=== PATIENT | male | born 1975 ===

== ENCOUNTER 2016-08-21 10:21 | Inpatient (IN) ==
[2016-08-21] MEDS ORDERED: MORPHINE 2 MG/1 ML SYRINGE IV PRN (11:26)
[2016-08-21] MEDS ORDERED: ACETAMINOPHEN 325 MG TABLET PO PRN (11:26)
[2016-08-21] MEDS ORDERED: ONDANSETRON 4 MG/2 ML VIAL IV PRN (11:26)
[2016-08-21] MEDS ORDERED: GLUCAGON 1 MG VIAL IM PRN (11:33)
[2016-08-21] MEDS ORDERED: DEXTROSE 50% 25 GM/50 ML VIAL IV PRN ×2 (11:33→14:16)
[2016-08-21 12:11] LABS: Basophils % 0.2 % (0.0-0.8); Eosinophils # 0.2 10*3/uL (0.0-0.87); Eosinophils % 3.4 % (0.00-10.9); Hematocrit 28.7 VOL% (42.0-52.0); Hemoglobin 10.2 GM/DL (14.0-18.0); Immature Granulocytes % 0.2 %; Immature Granulocytes Absolute 0.01 #; Lymphocytes # 0.9 10*3/uL (1.4-4.0); Lymphocytes % 14.4 % (21.2-54.2); Mean Corpuscular HGB Conc 35.5 GM/DL (32-36); Mean Corpuscular Hemoglobin 31 PG (27-34); Mean Corpuscular Volume 87.2 FL (87-102); Monocytes # 0.4 10*3/uL (0.11-0.8); Monocytes % 6.1 % (1.7-12.7); Neutrophils # 4.7 10*3/uL (1.4-7.4); Neutrophils % 75.7 % (38.7-73.9); Platelet Count 381 T/CUMM (130-400); Red Blood Count 3.29 MC/CUMM (3.8-5.5); Red Cell Distribution Width 11.9 % (9.3-17.3); White Blood Count 6.2 T/CUMM (4-12)
--- NOTE | 2016-08-21 12:20 | XRay Report ---
History: Shortness of breath Date: 08/21/2016 Study: Chest x-ray PA and lateral Comparison exam: September 01, 2014 The cardiac silhouette is not enlarged. There is no mediastinal mass. The pulmonary vasculature is not engorged. The exam was performed in shallow inspiration. There is mild subsegmental atelectasis in the right lung base. The lungs and pleural spaces are otherwise clear. Osseous structures are unremarkable. Impression: Shallow inspiration with mild platelike subsegmental atelectasis right lung base. No daria pneumonia or acute process otherwise PROCEDURE INTERPRETED AT [facility] DEPARTMENT OF RADIOLOGY Final Report Signed by: Dr. Marcelina Harvey
--- NOTE | 2016-08-21 12:28 | EKG Report ---
Stationary ECG Study [facility] Test Date: 08/21/2016 12:27:40 PM Pat Name: NEW FAULKNER Department: Room: 216 Gender: M Back Panel Padder: : 1975 Requested by: Brayden Humphries Order Number: [id number] Reading MD: MATHIEU SHAH Intervals [place] Rate: 77 P: 47 NE: 124 QRS: 75 QRSD: 102 T: -22 QT: 398 QTc: 430 Interpretive Statements SINUS RHYTHM Electronically Signed On 08-21-16 16:14:59 CDT by MAHTIEU SHAH [email or web address]
[2016-08-21 12:39] LABS: PT Patient Result 10.2 SECS; Partial Thromboplastin Time 33.8 SECS (0-40)
[2016-08-21 12:44] LABS: Albumin 2.4 G/DL (3.4-5.0); Calcium 8.2 MG/DL (8.5-10.1); Osmolality,Calculated 289.5 MOS/KG (273-304); Potassium 4.5 MMOL/L (3.5-5.1); Total Protein 6.3 G/DL (6.4-8.3)
[2016-08-21] MEDS ORDERED: SODIUM CHLORIDE 0.9% 1,000 ML IV ONE (12:49)
[2016-08-21 13:31] LABS: Apearance,Urine Slightly Hazy (Clear); Bacteria,Urine Occasional /HPF (Few); Bilirubin,Urine Negative (Negative); Blood, Urine Negative (Negative); Glucose,Urine (UA) 50 mg/dL (Negative); Ketones,Urine Negative (Negative); Mucus,Urine Occasional /LPF (Occasional); Nitrite,Urine Negative (Negative); Protein,Urine >=500 MG/DL; RBC,Urine 8 /HPF (0-4); Squamous Epithelial Cell,Urine Occasional /HPF (0-10); Urine Color Yellow (Yellow); Urine Specific Gravity 1.015 (1.001-1.035); Urine Urobilinogen < 2.0 EU/DL (0.2-1.0); WBC,Urine 2 /HPF (0-6)
[2016-08-21] MEDS: PIPERACILLIN/TAZOBACTAM 3,375 MG in SODIUM CHLORIDE 0.9% 100 ML IV SCH ×2 (15:16→21:41)
[2016-08-21] MEDS: SODIUM CHLORIDE 0.9% 1,000 ML IV SCH ×2 (15:16→23:34)
[2016-08-21] MEDS: INSULIN REGULAR 100 UNIT/ML SUBCUT SCH ×2 (17:02→20:42)
[2016-08-21] MEDS: SIMVASTATIN 40 MG TABLET PO SCH (20:31)
[2016-08-21] MEDS: ESCITALOPRAM 10 MG TABLET PO SCH (20:31)
[2016-08-22] MEDS: SODIUM CHLORIDE 0.9% 1,000 ML IV SCH ×4 (05:00→21:26)
[2016-08-22] MEDS: PIPERACILLIN/TAZOBACTAM 3,375 MG in SODIUM CHLORIDE 0.9% 100 ML IV SCH (05:24)
[2016-08-22 06:35] LABS: Calcium 7.7 MG/DL (8.5-10.1); Osmolality,Calculated 286.4 MOS/KG (273-304); Potassium 4.1 MMOL/L (3.5-5.1); Total Protein 5.7 G/DL (6.4-8.3)
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
--- NOTE | 2016-08-22 07:23 | General Surgery Progress Note ---
Assessment and Plan (1) Acute cholecystitis Status: Acute Assessment and plan: This patient improved overnight with IV fluid hydration and antibiotics but he still has significant abdominal tenderness. We held his Plavix on admission and I think that the benefit of cholecystectomy versus a tube drainage or antibiotics alone in this patient justifies the risk of surgery with him on Plavix. We will plan for laparoscopic cholecystectomy today with intraoperative cholangiogram. I discussed the risks, benefits, and alternatives of the operation with the patient and his family, and the expected outcomes have been reviewed. In particular, I discussed the risk of bleeding, infection, hernias of the abdominal wall, injury to the intestines or liver, pancreatitis, dropped or retained stones in the abdomen, bile leak, and bile duct injury. The patient's questions have been answered. Current Visit: Yes Subjective Patient reports: Present: no new complaints, still having pain, afebrile Exam - Constitutional Vitals: Period Temp Pulse Resp BP Sys/Cuadra Pulse Ox Last 24 Hr 97.2 F-99.1 F 70-83 18-20 161-182/86-98 98-100 General appearance: no acute distress, over weight - Head Head exam: Present: normal inspection, normocephalic - Eye Eye exam: Present: EOMI. Absent: scleral icterus Pupils: Present: RIGOBERTO - ENT ENT exam: Present: normal exam Mouth exam: Present: normal external inspection, normal voice - Neck Neck exam: Present: normal inspection, trachea midline - Respiratory Respiratory exam: Present: clear to auscultation bilaterally. Absent: accessory muscle use, chest wall tenderness - Cardiovascular Cardiovascular exam: Present: RRR. Absent: systolic murmur, tachycardia - GI/Abdominal GI/Abdominal exam: Present: Mejia's sign, tenderness, soft - Extremities Exam Extremities exam: Present: normal inspection, normal capillary refill - Back Exam Back exam: Present: normal inspection - Neurological Exam Neurological exam: Present: alert Speech: Present: normal - Skin Skin exam: Present: normal color, warm Results - Labs CBC & BMP: 08/21/16 11:46 08/22/16 04:30 Quality Measures - VTE Contraindication to Pharmacological VTE Prophylaxis: High Risk of Bleeding
[2016-08-22] MEDS ORDERED: PANTOPRAZOLE 40 MG TABLET PO SCH (09:00)
[2016-08-22] MEDS ORDERED: CLOPIDOGREL 75 MG TABLET PO SCH (09:00)
[2016-08-22] MEDS: PANTOPRAZOLE 40 MG TABLET PO SCH (10:36)
[2016-08-22] MEDS: METOPROLOL SUCCINATE XL 50 MG TABLET PO SCH (10:36)
[2016-08-22] MEDS ORDERED: TISSUE ADHESIVE 1 EACH APPLICATOR TOP ONE (11:01)
[2016-08-22] MEDS ORDERED: BUPIVACAINE MPF 0.25% /EPI 30 ML VIAL ONE (11:01)
[2016-08-22] MEDS: INSULIN REGULAR 100 UNIT/ML SUBCUT SCH ×3 (11:37→21:28)
[2016-08-22] MEDS: FERROUS SULFATE 325 MG TABLET PO SCH (11:39)
[2016-08-22] MEDS: ASPIRIN EC 81 MG TABLET PO SCH (11:39)
[2016-08-22] MEDS: GLIMEPIRIDE 2 MG TABLET PO SCH (11:39)
[2016-08-22 11:58] LABS: Bilirubin,Total 0.4 MG/DL (0.2-1.0)
[2016-08-22] MEDS ORDERED: LIDOCAINE 1% 5 ML VIAL ONE (12:05)
[2016-08-22] MEDS ORDERED: GLYCOPYRROLATE 0.4 MG/2 ML VIAL ONE (12:05)
[2016-08-22] MEDS ORDERED: ONDANSETRON 4 MG/2 ML VIAL ONE ×2 (12:05→14:27)
[2016-08-22] MEDS ORDERED: NEOSTIGMINE 10 MG/10 ML VIAL ONE (12:05)
[2016-08-22] MEDS ORDERED: ROCURONIUM 100 MG/10 ML VIAL IV ONE (12:05)
[2016-08-22] MEDS ORDERED: HYDROmorphone 2 MG/1 ML VIAL IV PRN (13:48)
--- NOTE | 2016-08-22 13:51 | Operative Note ---
Date of procedure: 08/22/16 Pre-op diagnosis: acute cholecystitis Post-op diagnosis: same Procedure: Preoperative diagnosis Acute cholecystitis Postoperative diagnosis Same Procedures performed Laparoscopic cholecystectomy 22 modifier Findings Acute cholecystitis was seen. The critical view of safety was obtained prior to placing clips on the cystic duct and cystic artery. There is significant scarring and inflammation in the cystic plate peritoneum with the tented up these common bile duct but this was able to be safely dissected away. However, the acute inflammation of the gallbladder made the case take more than twice usual length of time. 22 modifier was added for this reason. Complications None apparent Specimen Gallbladder Anesthesia GETA Blood loss 5 mL Indications Acute cholecystitis. The risks, benefits, and alternatives of the operation were discussed with the patient in detail, and the expected outcomes were reviewed. In particular, the risk of bowel injury, liver injury, bile duct leak and bile duct injury, as well as pancreatitis and retained or drop stones were discussed in detail. All the patient's questions were answered. She like to proceed with the operation. Description of procedure The patient was taken to the operating room and transferred to the operating table in the supine position. Pressure points were padded and SCDs were placed to bilateral lower extremities. General endotracheal anesthesia was administered. The abdomen was prepped chlorhexidine and draped sterilely. Preoperative antibiotics were administered, a timeout was performed. The abdomen was entered in a supraumbilical location of the Veress needle. The skin incision was made in the supraumbilical location with a 11 blade scalpel after local anesthetic was administered. Umbilical stalk was grasped with a penetrating towel clip. A Veress needle was used to enter the peritoneal cavity confirmed by double click technique. Aspiration was negative. Saline drop test confirmed intraperitoneal location. The abdomen was insufflated to 15 mmHg with an initial insufflation pressure of 2 mmHg. The Veress needle was removed and a 5 mm trocar was placed blindly. The towel clip was removed. Diagnostic laparoscopy was performed. There is no evidence of Veress needle or trocar injury. The patient was placed in reverse Trendelenburg and left side rolled down position. Under direct visualization, and after local anesthetic was administered, an 11 mm midepigastric trocar and 2 right subcostal 5 mm trochars were placed. There is significant acute inflammation of the gallbladder and it was very tense with fluid. This required aspiration to grasp the gallbladder. The cystic plate peritoneum was extremely inflamed and the common bile duct was tented up because of this inflammation making the case take more than twice usual length of time. However, the critical view of safety was initially obtained and the gallbladder was removed safely afterwards. There was a lot of inflammation present so CLAUDIA drain was left in the gallbladder fossa. The gallbladder was grasped at the fundus and infundibulum. The cystic plate peritoneum was dissected into the critical view of safety was obtained. The cystic duct and cystic artery were clipped twice initially and once laterally and divided laparoscopically with scissors between clips. Gallbladder was removed from the gallbladder fossa using hook electrocautery. The gallbladder was placed in a Endo Catch retrieval bag through the 11 mm trocar and removed through the trocar with significant fascial extension due to a large gallstone. The gallbladder fossa was suction irrigated until the effluent was clear. A #10 CLAUDIA drain was left in the gallbladder fossa and sewn in at the lateral right subcostal trocar site. The CO2 was released from the abdomen and the trochars were removed. The midepigastric fascial incision was closed with 2 layers of 0 Vicryl sutures with no residual fascial defect. The skin incisions were closed with 4-0 Monocryl subcuticular suture and sterile skin glue. The patient was awakened from anesthesia and transferred to recovery. Postoperative plan Advance diet as tolerated Pain control Anesthesia: NELLYA, local Surgeon / Physician: Francisco Leroy Estimated blood loss: minimal (100 mL) Specimens: other (gallbladder) Condition: stable Disposition: PACU Results - Labs CBC & BMP: 08/21/16 11:46 08/22/16 04:30 Discharge Plan - Discharge Medications No Action Aspirin [Ecotrin] 81 mg PO DAILY Metoprolol Succinate Xl [Toprol Xl] 50 mg PO DAILY Simvastatin [Zocor] 40 mg PO BEDTIME Lisinopril [Prinivil] 40 mg PO DAILY Chlorthalidone [Hygroton] 25 mg PO DAILY Dextrose 50% [D50] 25 gm IV PRN PRN #0 vial PRN Reason: Hypoglycemia with IV access Glucagon 1 mg IM PRN PRN #0 vial PRN Reason: Hypoglycemia w/o IV access Pantoprazole Tab [Protonix Tab] 20 mg PO DAILY Insulin Regular [HumuLIN R] See Protocol SUBCUT ACHS Multivitamin [One Daily] 1 each PO DAILY W/BREAKFAST Clopidogrel [Plavix] 75 mg PO DAILY metFORMIN [Glucophage] 250 mg PO BID W/MEALS Omeprazole 20 mg PO DAILY Ferrous Sulfate 325 mg PO DAILY Acetaminophen Tab [Tylenol Tab] 325 mg PO Q6H PRN PRN Reason: Fever, Headache, Mild Pain Ranitidine Tab [Zantac Tab] 150 mg PO DAILY Escitalopram [Lexapro] 10 mg PO BEDTIME Glimepiride [Amaryl] 1 mg PO DAILY traMADol TAB [Ultram] 50 mg PO Q6H PRN PRN Reason: pain - Follow Up or Referral - Forms/Instructions
[2016-08-22] MEDS ORDERED: SEVOFLURANE 1 UNIT/15 MINUTE INH ONE (14:06)
[2016-08-22] MEDS ORDERED: fentaNYL 100 MCG/2 ML VIAL ONE (14:07)
[2016-08-22] MEDS ORDERED: ePHEDrine 50 MG/ML AMP ONE (14:07)
[2016-08-22] MEDS ORDERED: MIDAZOLAM 2 MG/2 ML VIAL ONE (14:07)
[2016-08-22] MEDS ORDERED: ONDANSETRON 4 MG/2 ML VIAL IV PRN (14:11)
[2016-08-22] MEDS ORDERED: HYDROmorphone 2 MG/1 ML VIAL ONE (14:27)
[2016-08-22] MEDS: HYDROmorphone 2 MG/1 ML VIAL IV PRN ×3 (14:29→14:44)
[2016-08-22] MEDS ORDERED: SODIUM CHLORIDE 0.9% 1,000 ML IV SCH (14:30)
--- NOTE | 2016-08-22 14:32 | Anesthesia Post-Op ---
Anesthesia Post OP - Post Ansesthetic Evaluation Patient seen in post op: Yes Resp: within normal limits CV: within normal limits Mental: within normal limits Temp: within normal limits [id number]: within normal limits Nausea and Vomiting: within normal limits Pain: within normal limits
--- NOTE | 2016-08-22 19:01 | Event Note ---
General Surgery Progress Note Chief complaint This patient is a 40-year-old man admitted with acute cholecystitis and resultant acute kidney injury treated with hydration and laparoscopic cholecystectomy on 08/22/2016 Interval history The patient is doing well postoperatively. He has a low-grade tachycardia. There is minimal serosanguineous output and his CLAUDIA drain. He is tolerating his diet. His pain is well controlled. Physical exam The patient is afebrile. He has a low-grade tachycardia and his blood pressure is elevated CLAUDIA drain is serosanguineous and the patient has expected postoperative tenderness Labs None new Imaging None new Assessment and plan Diet as tolerated Repeat labs in the morning and continue IV fluid hydration tonight Discontinue antibiotics Monitor CLAUDIA drain output
[2016-08-22] MEDS: SIMVASTATIN 40 MG TABLET PO SCH (21:29)
[2016-08-22] MEDS: ESCITALOPRAM 10 MG TABLET PO SCH (21:30)
[2016-08-23] MEDS: SODIUM CHLORIDE 0.9% 1,000 ML IV SCH (03:34)
[2016-08-23 06:24] LABS: Basophils % 0.1 % (0.0-0.8); Eosinophils % 0.5 % (0.00-10.9); Hematocrit 26.4 VOL% (42.0-52.0); Hemoglobin 8.8 GM/DL (14.0-18.0); Immature Granulocytes % 0.5 %; Immature Granulocytes Absolute 0.04 #; Lymphocytes # 1.3 10*3/uL (1.4-4.0); Lymphocytes % 17.1 % (21.2-54.2); Mean Corpuscular HGB Conc 33.3 GM/DL (32-36); Mean Corpuscular Hemoglobin 30 PG (27-34); Mean Platelet Volume 7.6 FL (9.6-12.0); Monocytes # 0.7 10*3/uL (0.11-0.8); Monocytes % 8.4 % (1.7-12.7); Neutrophils # 5.7 10*3/uL (1.4-7.4); Neutrophils % 73.4 % (38.7-73.9); Platelet Count 372 T/CUMM (130-400); White Blood Count 7.7 T/CUMM (4-12)
[2016-08-23 07:10] LABS: Calcium 7.7 MG/DL (8.5-10.1); Magnesium 2.2 MG/DL (1.8-2.4); Osmolality,Calculated 292.8 MOS/KG (273-304); Potassium 4.4 MMOL/L (3.5-5.1)
[2016-08-23] MEDS: GLIMEPIRIDE 2 MG TABLET PO SCH (10:12)
[2016-08-23] MEDS: ASPIRIN EC 81 MG TABLET PO SCH (10:12)
[2016-08-23] MEDS: METOPROLOL SUCCINATE XL 50 MG TABLET PO SCH (10:12)
[2016-08-23] MEDS: FERROUS SULFATE 325 MG TABLET PO SCH (10:12)
[2016-08-23] MEDS: PANTOPRAZOLE 40 MG TABLET PO SCH (10:13)
[2016-08-23] MEDS: INSULIN REGULAR 100 UNIT/ML SUBCUT SCH ×4 (10:24→21:03)
[2016-08-23] MEDS: DEXT 5% NACL 0.45% KCL 40 MEQ 40 MEQ/1,000 ML BAG IV SCH ×2 (10:31→21:02)
--- NOTE | 2016-08-23 11:46 | Event Note ---
General Surgery Progress Note Chief complaint This patient is a 40-year-old man admitted with acute cholecystitis and resultant acute kidney injury treated with hydration and laparoscopic cholecystectomy on 08/22/2016 Interval history Patient did well overnight. His hemoglobin did drop from 10-8.8 this morning. His CLAUDIA drain has serosanguineous output and there is no clinical evidence of ongoing bleeding. He is slightly tachycardic with heart rate in the high 90s but his blood pressure is also elevated. He is not really asking for pain medicine. His creatinine is stable at 2.1 but his BUN is downtrending. He says he feels much better and is tolerating regular diet. Physical exam The patient is afebrile. He has a low-grade tachycardia and his blood pressure is elevated CLAUDIA drain is serosanguineous and the patient has expected postoperative tenderness Labs Reviewed, as above Imaging None new Assessment and plan Continue diet as tolerated Continue IV fluid hydration for acute renal injury due to dehydration Repeat labs tomorrow Plan for discharge home tomorrow if labs are improving Hold off on DVT chemoprophylaxis given decrease in hemoglobin and wait for this to stabilize Continue incentive spirometry and SCDs
[2016-08-23] MEDS: PIPERACILLIN/TAZOBACTAM 3,375 MG in SODIUM CHLORIDE 0.9% 100 ML IV SCH (19:54)
[2016-08-23] MEDS: ESCITALOPRAM 10 MG TABLET PO SCH (21:02)
[2016-08-23] MEDS: SIMVASTATIN 40 MG TABLET PO SCH (21:02)
[2016-08-24] MEDS: DEXT 5% NACL 0.45% KCL 40 MEQ 40 MEQ/1,000 ML BAG IV SCH ×3 (03:57→21:48)
[2016-08-24 05:16] LABS: Basophils % 0.1 % (0.0-0.8); Eosinophils # 0.4 10*3/uL (0.0-0.87); Eosinophils % 4.9 % (0.00-10.9); Hematocrit 23.7 VOL% (42.0-52.0); Hemoglobin 8.2 GM/DL (14.0-18.0); Immature Granulocytes % 0.5 %; Immature Granulocytes Absolute 0.04 #; Lymphocytes # 1.5 10*3/uL (1.4-4.0); Lymphocytes % 20.2 % (21.2-54.2); Mean Corpuscular HGB Conc 34.6 GM/DL (32-36); Mean Corpuscular Hemoglobin 31 PG (27-34); Mean Corpuscular Volume 88.8 FL (87-102); Mean Platelet Volume 7.9 FL (9.6-12.0); Monocytes # 0.6 10*3/uL (0.11-0.8); Monocytes % 8.3 % (1.7-12.7); Neutrophils # 4.9 10*3/uL (1.4-7.4); Platelet Count 365 T/CUMM (130-400); Red Blood Count 2.67 MC/CUMM (3.8-5.5); Red Cell Distribution Width 11.9 % (9.3-17.3); White Blood Count 7.4 T/CUMM (4-12)
[2016-08-24 05:44] LABS: Calcium 7.5 MG/DL (8.5-10.1); Magnesium 2.1 MG/DL (1.8-2.4); Osmolality,Calculated 288.3 MOS/KG (273-304); Potassium 4.5 MMOL/L (3.5-5.1)
[2016-08-24] MEDS: METOPROLOL SUCCINATE XL 50 MG TABLET PO SCH (09:05)
[2016-08-24] MEDS: GLIMEPIRIDE 2 MG TABLET PO SCH (09:05)
[2016-08-24] MEDS: FERROUS SULFATE 325 MG TABLET PO SCH (09:06)
[2016-08-24] MEDS: ASPIRIN EC 81 MG TABLET PO SCH (09:06)
[2016-08-24] MEDS: PANTOPRAZOLE 40 MG TABLET PO SCH (09:06)
--- NOTE | 2016-08-24 11:46 | Event Note ---
General Surgery Progress Note Chief complaint This patient is a 40-year-old man admitted with acute cholecystitis and resultant acute kidney injury treated with hydration and laparoscopic cholecystectomy on 08/22/2016 Interval history No events overnight. Hemoglobin is drifting down some and is 0.6 g lower than yesterday. Creatinine continues to improve slowly. Physical exam The patient is afebrile. No tachycardia. Blood pressure is elevated CLAUDIA drain is serosanguineous and the patient has expected postoperative tenderness Labs Reviewed, as above Imaging None new Assessment and plan Continue diet as tolerated Continue IV fluid hydration for acute renal injury due to dehydration Repeat labs tomorrow Plan for discharge home tomorrow if labs are stable Hold off on DVT chemoprophylaxis given decrease in hemoglobin and wait for this to stabilize Continue incentive spirometry and SCDs
[2016-08-24] MEDS: INSULIN REGULAR 100 UNIT/ML SUBCUT SCH ×3 (18:39→21:48)
[2016-08-24] MEDS: SIMVASTATIN 40 MG TABLET PO SCH (20:22)
[2016-08-24] MEDS: ESCITALOPRAM 10 MG TABLET PO SCH (20:22)
[2016-08-25 05:03] LABS: Basophils % 0.3 % (0.0-0.8); Eosinophils # 0.5 10*3/uL (0.0-0.87); Eosinophils % 6.1 % (0.00-10.9); Hematocrit 25.8 VOL% (42.0-52.0); Hemoglobin 8.7 GM/DL (14.0-18.0); Immature Granulocytes % 0.5 %; Immature Granulocytes Absolute 0.04 #; Lymphocytes # 1.7 10*3/uL (1.4-4.0); Lymphocytes % 22.5 % (21.2-54.2); Mean Corpuscular HGB Conc 33.7 GM/DL (32-36); Mean Corpuscular Hemoglobin 30 PG (27-34); Mean Corpuscular Volume 88.7 FL (87-102); Mean Platelet Volume 8.1 FL (9.6-12.0); Monocytes # 0.6 10*3/uL (0.11-0.8); Monocytes % 7.8 % (1.7-12.7); Neutrophils # 4.9 10*3/uL (1.4-7.4); Neutrophils % 62.8 % (38.7-73.9); Platelet Count 435 T/CUMM (130-400); Red Blood Count 2.91 MC/CUMM (3.8-5.5); Red Cell Distribution Width 11.9 % (9.3-17.3); White Blood Count 7.7 T/CUMM (4-12)
[2016-08-25 05:32] LABS: Calcium 7.8 MG/DL (8.5-10.1); Potassium 5.1 MMOL/L (3.5-5.1)
--- NOTE | 2016-08-25 06:30 | Event Note ---
General Surgery Progress Note Chief complaint This patient is a 40-year-old man admitted with acute cholecystitis and resultant acute kidney injury treated with hydration and laparoscopic cholecystectomy on 08/22/2016 Interval history No events overnight. Patient is stable and beginning to tolerate more of his diet. Creatinine continues to improve. Hemoglobin has stabilized. No fevers. Physical exam The patient is afebrile. No tachycardia. Blood pressure is elevated CLAUDIA drain is serosanguineous and the patient has expected postoperative tenderness Labs Reviewed, as above Imaging None new Assessment and plan Discontinue IV fluids Continue diabetic diet Discharge home today if tolerating adequate PO intake
[2016-08-25] MEDS: DEXT 5% NACL 0.45% KCL 40 MEQ 40 MEQ/1,000 ML BAG IV SCH (06:35)
[2016-08-25] MEDS: INSULIN REGULAR 100 UNIT/ML SUBCUT SCH ×4 (09:07→21:06)
[2016-08-25] MEDS: FERROUS SULFATE 325 MG TABLET PO SCH (09:07)
[2016-08-25] MEDS: METOPROLOL SUCCINATE XL 50 MG TABLET PO SCH (09:08)
[2016-08-25] MEDS: PANTOPRAZOLE 40 MG TABLET PO SCH (09:08)
[2016-08-25] MEDS: ASPIRIN EC 81 MG TABLET PO SCH (09:08)
[2016-08-25] MEDS: GLIMEPIRIDE 2 MG TABLET PO SCH (09:08)
--- NOTE | 2016-08-25 12:22 | Pathology Report from [facility] ---
[facility] [place] ACCESSION # : [id number] PATIENT NAME : Chika Castillo ORDERING DR : Francisco Leroy MD CLINICAL HX: Cholecystitis POST-OP DX: Same SPECIMEN INFO: Gallbladder GROSS DESCRIPTION: Received in formalin labeled CHIKA CASTILLO is a gallbladder measuring 10.3 x 3.5 cm. The serosa is erythematous and intact. The gallbladder wall measures up to 0.5 cm. The mucosal surface is ulcerated and hemorrhagic with a single oval green henderson stone noted measuring 2.0 x 2.3 cm. Dining Service Supervisor sections are submitted in one cassette. DIAGNOSIS FOR CHIKA CASTILLO: GALLBLADDER, CHOLECYSTECTOMY: Marked acute and chronic necrotizing cholecystitis. Cholelithiasis. COLLECTED DATE: 08/22/2016 [facility] [place] REPORT DATE: 08/25/2016 ELECTRONICALLY SIGNED BY: Winston Shannon M.D. 08/25/2016 - 9:50:10 MTDD
[2016-08-25] MEDS: CLOPIDOGREL 75 MG TABLET PO SCH (14:48)
[2016-08-25 15:17] LABS: Basophils % 0.3 % (0.0-0.8); Eosinophils # 0.2 10*3/uL (0.0-0.87); Hematocrit 27.5 VOL% (42.0-52.0); Hemoglobin 9.6 GM/DL (14.0-18.0); Immature Granulocytes % 0.5 %; Immature Granulocytes Absolute 0.04 #; Lymphocytes # 1.3 10*3/uL (1.4-4.0); Lymphocytes % 16.8 % (21.2-54.2); Mean Corpuscular HGB Conc 34.9 GM/DL (32-36); Mean Corpuscular Hemoglobin 30 PG (27-34); Mean Platelet Volume 7.7 FL (9.6-12.0); Monocytes # 0.5 10*3/uL (0.11-0.8); Monocytes % 7.3 % (1.7-12.7); Neutrophils # 5.4 10*3/uL (1.4-7.4); Neutrophils % 72.1 % (38.7-73.9); Platelet Count 429 T/CUMM (130-400); Red Blood Count 3.16 MC/CUMM (3.8-5.5); Red Cell Distribution Width 11.9 % (9.3-17.3); White Blood Count 7.4 T/CUMM (4-12)
[2016-08-25] MEDS: SIMVASTATIN 40 MG TABLET PO SCH (21:06)
[2016-08-25] MEDS: ESCITALOPRAM 10 MG TABLET PO SCH (21:06)
[2016-08-26 05:29] LABS: Basophils % 0.1 % (0.0-0.8); Eosinophils # 0.4 10*3/uL (0.0-0.87); Eosinophils % 4.6 % (0.00-10.9); Hematocrit 27.3 VOL% (42.0-52.0); Hemoglobin 9.4 GM/DL (14.0-18.0); Immature Granulocytes % 0.6 %; Immature Granulocytes Absolute 0.05 #; Lymphocytes # 1.9 10*3/uL (1.4-4.0); Lymphocytes % 21.2 % (21.2-54.2); Mean Corpuscular HGB Conc 34.4 GM/DL (32-36); Mean Corpuscular Hemoglobin 30 PG (27-34); Mean Corpuscular Volume 87.8 FL (87-102); Mean Platelet Volume 7.9 FL (9.6-12.0); Monocytes # 0.6 10*3/uL (0.11-0.8); Monocytes % 6.8 % (1.7-12.7); Neutrophils % 66.7 % (38.7-73.9); Platelet Count 488 T/CUMM (130-400); Red Blood Count 3.11 MC/CUMM (3.8-5.5)
[2016-08-26 05:55] LABS: Calcium 8.3 MG/DL (8.5-10.1); Osmolality,Calculated 281.3 MOS/KG (273-304); Potassium 5.3 MMOL/L (3.5-5.1)
[2016-08-26] MEDS: GLIMEPIRIDE 2 MG TABLET PO SCH (08:40)
[2016-08-26] MEDS: ASPIRIN EC 81 MG TABLET PO SCH (08:40)
[2016-08-26] MEDS: FERROUS SULFATE 325 MG TABLET PO SCH (08:40)
[2016-08-26] MEDS: CLOPIDOGREL 75 MG TABLET PO SCH (08:40)
[2016-08-26] MEDS: METOPROLOL SUCCINATE XL 50 MG TABLET PO SCH (08:40)
[2016-08-26] MEDS: INSULIN REGULAR 100 UNIT/ML SUBCUT SCH ×2 (08:40→12:14)
[2016-08-26] MEDS: PANTOPRAZOLE 40 MG TABLET PO SCH (08:40)
--- NOTE | 2016-08-26 10:53 | Event Note ---
General Surgery Progress Note Chief complaint This patient is a 40-year-old man admitted with acute cholecystitis and resultant acute kidney injury treated with hydration and laparoscopic cholecystectomy on 08/22/2016 Interval history No events overnight. Patient is tolerating diet and having improved p.o. intake drinking plenty of liquids. Physical exam The patient is afebrile. No tachycardia. Blood pressure is elevated Abdominal exam is benign Labs Reviewed, as above Imaging None new Assessment and plan Continue diabetic diet Discharge home today follow-up in 2 weeks restart plavix on discharge
[2016-08-26 11:14] VITALS: BP 159/81
--- NOTE | 2016-08-26 13:01 | Discharge Summary ---
Hospital Course - Hospital Course Hospital Course: Patient is a 40-year-old male admitted directly from clinic with acute cholecystitis on CT from outside facility. 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 He also presented with acute kidney injury which responded to IV resuscitation; creatinine stable aspirin elevated with suspected chronic renal insufficiency underlying. Postoperatively, he gradually advance his diet with some difficulty initially reporting abdominal pain, but this resolved and he was tolerating diet at the time of discharge. He was discharged back to the custodial facility in which he resided with plans for diabetic diet and to follow with Dr. Leroy. He was discharged in good condition. Diagnosis - Discharge Diagnosis (1) Acute cholecystitis Status: Acute Discharge Plan - Discharge Data Disposition: Disch/Xfer to Snf Condition at Discharge: Stable Discharge Diet: advance to your usual diet Activity: resume usual activities as tolerated Hygiene: may shower (Do not soak or submerge wounds) Contact your physician if you experience:: fever over 101, Difficulty voiding, Redness or swelling, Nausea/Vomiting, Shortness of breath, Bleeding, pain uncontrolled by pain medications Wound / Dressing Care Instructions: Keep surgical incisions clean, dry and covered with adhesive bandages - Discharge Medications New HYDROcodone/ACETAMIN 7.5-325 [[place] 7.5-325] 1 tablet PO Q4H PRN #40 tablet PRN Reason: Pain Moderate To Severe (4-10) Continue Aspirin [Ecotrin] 81 mg PO DAILY Metoprolol Succinate Xl [Toprol Xl] 50 mg PO DAILY Simvastatin [Zocor] 40 mg PO BEDTIME Lisinopril [Prinivil] 40 mg PO DAILY Chlorthalidone [Hygroton] 25 mg PO DAILY Dextrose 50% [D50] 25 gm IV PRN PRN #0 vial PRN Reason: Hypoglycemia with IV access Glucagon 1 mg IM PRN PRN #0 vial PRN Reason: Hypoglycemia w/o IV access Pantoprazole Tab [Protonix Tab] 20 mg PO DAILY Insulin Regular [HumuLIN R] See Protocol SUBCUT ACHS Multivitamin [One Daily] 1 each PO DAILY W/BREAKFAST Clopidogrel [Plavix] 75 mg PO DAILY metFORMIN [Glucophage] 250 mg PO BID W/MEALS Omeprazole 20 mg PO DAILY Ferrous Sulfate 325 mg PO DAILY Acetaminophen Tab [Tylenol Tab] 325 mg PO Q6H PRN PRN Reason: Fever, Headache, Mild Pain Ranitidine Tab [Zantac Tab] 150 mg PO DAILY Escitalopram [Lexapro] 10 mg PO BEDTIME Glimepiride [Amaryl] 1 mg PO DAILY traMADol TAB [Ultram] 50 mg PO Q6H PRN PRN Reason: pain - Follow Up or Referral Follow Up: Francisco Leroy MD [Physician] - 2 Weeks - Forms/Instructions Instructions: Laparoscopic Cholecystectomy (DC) Additional Discharge Instructions: Check BMP 1 wk Exam - Constitutional Vitals: Period Temp Pulse Resp BP Sys/Cuadra Pulse Ox Last 24 Hr 97.5 F-98.2 F 65-71 16-20 139-161/73-88 98-99 General appearance: no acute distress - Head Head exam: Present: atraumatic - Respiratory Respiratory exam: Present: clear to auscultation bilaterally - Cardiovascular Cardiovascular exam: Present: regular rate and rhythm - GI/Abdominal GI/Abdominal exam: Present: normal bowel sounds, tenderness (Minimal tenderness ; appropriate postoperative tenderness. Surgical incision is clean, dry and intact), soft. Absent: distended - Extremities Exam Extremities exam: Absent: calf tenderness, edema - Neurological Exam Neurological exam: Present: alert - Skin Skin exam: Present: normal color, warm Discharge Results Procedures and tests throughout hospitalization: Procedures Laparoscopic cholecystectomy Pathology: Marked acute and chronic necrotizing cholecystitis; cholelithiasis Labs on day of discharge: Labs from last 24 hours 08/26/16 08/26/16 08/26/16 10:58 07:14 04:27 WBC RBC Hgb Hct MCV MCH MCHC RDW Plt Count MPV Neut % (Auto) Lymph % (Auto) Storey % (Auto) Eos % (Auto) Baso % (Auto) Neut # (Auto) Lymph # (Auto) Storey # (Auto) Eos # (Auto) Baso # (Auto) Immature Gran % Nucleated RBC % Immature Gran # Nucleated RBCs # Sodium 141 Potassium 5.3 H Chloride 109 H Carbon Dioxide 24 Anion Gap 13.3 BUN 15 Creatinine 1.50 H GFR Calculation 69 BUN/Creatinine Ratio 10.00 Glucose 91 POC Glucose 185 H 121 H Calculated Osmolality 281.3 Calcium 8.3 L 08/26/16 08/25/16 08/25/16 04:27 19:54 16:30 WBC 9.0 RBC 3.11 L Hgb 9.4 L Hct 27.3 L MCV 87.8 MCH 30 MCHC 34.4 RDW 12.0 Plt Count 488 H MPV 7.9 L Neut % (Auto) 66.7 Lymph % (Auto) 21.2 Storey % (Auto) 6.8 Eos % (Auto) 4.6 Baso % (Auto) 0.1 Neut # (Auto) 6.0 Lymph # (Auto) 1.9 Storey # (Auto) 0.6 Eos # (Auto) 0.4 Baso # (Auto) 0.0 Immature Gran % 0.6 Nucleated RBC % 0.0 Immature Gran # 0.05 Nucleated RBCs # 0.00 Sodium Potassium Chloride Carbon Dioxide Anion Gap BUN Creatinine GFR Calculation BUN/Creatinine Ratio Glucose POC Glucose 120 H 170 H Calculated Osmolality Calcium 08/25/16 14:58 WBC 7.4 RBC 3.16 L Hgb 9.6 L Hct 27.5 L MCV 87.0 MCH 30 MCHC 34.9 RDW 11.9 Plt Count 429 H MPV 7.7 L Neut % (Auto) 72.1 Lymph % (Auto) 16.8 L Storey % (Auto) 7.3 Eos % (Auto) 3.0 Baso % (Auto) 0.3 Neut # (Auto) 5.4 Lymph # (Auto) 1.3 L Storey # (Auto) 0.5 Eos # (Auto) 0.2 Baso # (Auto) 0.0 Immature Gran % 0.5 Nucleated RBC % 0.0 Immature Gran # 0.04 Nucleated RBCs # 0.00 Sodium Potassium Chloride Carbon Dioxide Anion Gap BUN Creatinine GFR Calculation BUN/Creatinine Ratio Glucose POC Glucose Calculated Osmolality Calcium - Imaging and Cardiology Procedure: CT Abdomen and Pelvis: image reviewed by me, report reviewed by me ( Outside images) DS: Provider Date of admission: 08/21/16 11:26 Primary care physician: Eh Bergeron MD Attending physician on admission: Francisco Leroy MD Consults: 08/21/16 12:48 Consult to Pharmacy [CONS] Routine Reason for Pharmacy Consult: Dose/Manage Antibiotics Discharging clinician: Daysi Humphries PA-C
== END 2016-08-26 15:12 | DRG 418 ==
LOC: N.2E 10:35
PROVIDERS: ADMIT Surgery; ATTEND Surgery
PROC: LAPCHOL (2016-08-22 14:20)

== ENCOUNTER 2019-09-22 17:19 | Inpatient (IN) ==
[2019-09-22] MEDS ORDERED: ALBUTEROL 2.5 MG/3 ML NEB RESP TX PRN (22:19)
[2019-09-22] MEDS ORDERED: ACETAMINOPHEN 325 MG TABLET PO PRN (22:19)
[2019-09-22] MEDS ORDERED: VANCOMYCIN INJ 1,000 MG in SODIUM CHLORIDE 0.9% 250 ML IV ONE (22:22)
[2019-09-22] MEDS ORDERED: GLUCAGON 1 MG VIAL IM PRN (22:24)
[2019-09-22] MEDS ORDERED: DEXTROSE 50% 25 GM/50 ML VIAL IV PRN (22:24)
[2019-09-22] MEDS ORDERED: cefTRIAXone 1,000 MG in SODIUM CHLORIDE 0.9% 100 ML IV SCH (22:30)
[2019-09-23] MEDS ORDERED: LEVOFLOXACIN INJ 500 MG in PREMIX 1 EACH IV SCH (01:00)
[2019-09-23] MEDS: PHENYLEPHRINE DRIP 40 MG/250 ML PREMIX IV PRN ×2 (02:18→15:28)
[2019-09-23 04:32] LABS: Basophils # 0.1 10*3/uL (0.0-0.2); Basophils % 0.2 % (0.0-0.8); Eosinophils % 0.2 % (0.00-10.9); Hematocrit 30.1 VOL% (42.0-52.0); Hemoglobin 9.6 GM/DL (14.0-18.0); Immature Granulocytes % 1.1 %; Immature Granulocytes Absolute 0.29 #; Lymphocytes % 3.8 % (21.2-54.2); Mean Corpuscular HGB Conc 31.9 GM/DL (32-36); Mean Corpuscular Volume 93.8 FL (87-102); Mean Platelet Volume 8.5 FL (9.6-12.0); Monocytes % 2.7 % (1.7-12.7); Platelet Count 345 T/CUMM (130-400); Red Blood Count 3.21 MC/CUMM (3.8-5.5); Red Cell Distribution Width 15.2 % (9.3-17.3); White Blood Count 26.6 T/CUMM (4-12)
[2019-09-23 04:59] LABS: Band Neutrophils 9 % (0-10); Hypochromasia 1+; Lymphocytes 3 % (20-55); Platelet Estimate Adequate; Segmented Neutrophils 87 % (50-85); Total Cells Counted 100
[2019-09-23 05:30] LABS: Calcium 7.1 MG/DL (8.5-10.1)
[2019-09-23 05:31] LABS: Osmolality,Calculated 285.8 MOS/KG (273-304)
[2019-09-23] MEDS: ASPIRIN EC 81 MG TABLET PO SCH (08:42)
[2019-09-23] MEDS: PANTOPRAZOLE 40 MG TABLET PO SCH (08:43)
[2019-09-23] MEDS: ENOXAPARIN 30 MG/0.3 ML SYRINGE SUBCUT SCH (08:43)
[2019-09-23] MEDS: metroNIDAZOLE 500 MG TABLET PO SCH ×3 (08:43→21:44)
[2019-09-23] MEDS: CLOPIDOGREL 75 MG TABLET PO SCH (08:43)
[2019-09-23] MEDS: INSULIN REGULAR 100 UNIT/ML SUBCUT SCH ×4 (09:31→21:44)
[2019-09-23] MEDS ORDERED: ALBUMIN 25% 25 GM in PREMIX 1 EACH IV ONE (12:49)
[2019-09-23] MEDS: MIDODRINE 5 MG TABLET PO SCH ×2 (14:50→21:44)
[2019-09-23] MEDS ORDERED: HEPARIN 10,000 UNIT/10 ML VIAL IV SCH (17:00)
[2019-09-23] MEDS: VANCOMYCIN 50 MG/ML 60 ML/BOTTLE PO SCH (17:40)
[2019-09-23] MEDS ORDERED: cefTRIAXone 1,000 MG in SYRINGE 1 EACH IV SCH (22:00)
[2019-09-24] MEDS: VANCOMYCIN 50 MG/ML 60 ML/BOTTLE PO SCH ×5 (00:30→23:59)
[2019-09-24] MEDS: PHENYLEPHRINE DRIP 40 MG/250 ML PREMIX IV PRN (03:35)
[2019-09-24 04:53] LABS: Basophils # 0.1 10*3/uL (0.0-0.2); Basophils % 0.3 % (0.0-0.8); Eosinophils # 0.3 10*3/uL (0.0-0.87); Eosinophils % 0.7 % (0.00-10.9); Hematocrit 32.6 VOL% (42.0-52.0); Hemoglobin 10.6 GM/DL (14.0-18.0); Immature Granulocytes % 1.3 %; Immature Granulocytes Absolute 0.43 #; Lymphocytes # 1.8 10*3/uL (1.4-4.0); Lymphocytes % 5.3 % (21.2-54.2); Mean Corpuscular HGB Conc 32.5 GM/DL (32-36); Mean Corpuscular Volume 93.7 FL (87-102); Mean Platelet Volume 7.9 FL (9.6-12.0); Monocytes % 3.7 % (1.7-12.7); Neutrophils % 88.7 % (38.7-73.9); Platelet Count 365 T/CUMM (130-400); Red Blood Count 3.48 MC/CUMM (3.8-5.5); White Blood Count 34.1 T/CUMM (4-12)
[2019-09-24 05:23] LABS: Hypochromasia Slight; Microcytosis 1+; Ovalocytes Slight; Platelet Estimate Normal
[2019-09-24 05:27] LABS: Calcium 6.9 MG/DL (8.5-10.1); Osmolality,Calculated 277.8 MOS/KG (273-304)
[2019-09-24] MEDS ORDERED: POTASSIUM CHLORIDE 20 MEQ TABLET PO ONE (08:28)
[2019-09-24] MEDS: INSULIN REGULAR 100 UNIT/ML SUBCUT SCH ×4 (08:51→21:11)
[2019-09-24] MEDS: CLOPIDOGREL 75 MG TABLET PO SCH (08:51)
[2019-09-24] MEDS: metroNIDAZOLE 500 MG TABLET PO SCH ×3 (08:51→20:16)
[2019-09-24] MEDS: ASPIRIN EC 81 MG TABLET PO SCH (08:51)
[2019-09-24] MEDS: PANTOPRAZOLE 40 MG TABLET PO SCH (08:51)
[2019-09-24] MEDS: ENOXAPARIN 30 MG/0.3 ML SYRINGE SUBCUT SCH (08:51)
[2019-09-24] MEDS: MIDODRINE 5 MG TABLET PO SCH ×3 (08:51→20:17)
[2019-09-24] MEDS ORDERED: CALCIUM GLUCONATE 2,000 MG in SODIUM CHLORIDE 0.9% 100 ML IV PRN (09:34)
[2019-09-25 03:53] LABS: Basophils % 0.2 % (0.0-0.8); Eosinophils # 0.8 10*3/uL (0.0-0.87); Eosinophils % 6.4 % (0.00-10.9); Hematocrit 30.2 VOL% (42.0-52.0); Hemoglobin 9.7 GM/DL (14.0-18.0); Immature Granulocytes % 0.6 %; Immature Granulocytes Absolute 0.07 #; Lymphocytes # 1.8 10*3/uL (1.4-4.0); Lymphocytes % 14.8 % (21.2-54.2); Mean Corpuscular HGB Conc 32.1 GM/DL (32-36); Mean Corpuscular Volume 93.5 FL (87-102); Monocytes % 5.9 % (1.7-12.7); Neutrophils % 72.1 % (38.7-73.9); Platelet Count 315 T/CUMM (130-400); Red Blood Count 3.23 MC/CUMM (3.8-5.5); Red Cell Distribution Width 15.2 % (9.3-17.3); White Blood Count 11.9 T/CUMM (4-12)
[2019-09-25 04:08] LABS: Calcium 7.2 MG/DL (8.5-10.1)
[2019-09-25] MEDS ORDERED: POTASSIUM CHLORIDE 20 MEQ TABLET PO ONE (05:11)
[2019-09-25] MEDS: VANCOMYCIN 50 MG/ML 60 ML/BOTTLE PO SCH ×3 (05:53→20:30)
[2019-09-25] MEDS: ASPIRIN EC 81 MG TABLET PO SCH (08:22)
[2019-09-25] MEDS: PANTOPRAZOLE 40 MG TABLET PO SCH (08:22)
[2019-09-25] MEDS: ENOXAPARIN 30 MG/0.3 ML SYRINGE SUBCUT SCH (08:22)
[2019-09-25] MEDS: MIDODRINE 5 MG TABLET PO SCH ×3 (08:22→20:30)
[2019-09-25] MEDS: CLOPIDOGREL 75 MG TABLET PO SCH (08:22)
[2019-09-25] MEDS: metroNIDAZOLE 500 MG TABLET PO SCH ×3 (08:22→20:30)
[2019-09-25] MEDS: INSULIN REGULAR 100 UNIT/ML SUBCUT SCH ×4 (08:22→20:39)
[2019-09-26] MEDS: VANCOMYCIN 50 MG/ML 60 ML/BOTTLE PO SCH ×4 (00:24→17:57)
[2019-09-26 05:17] LABS: Basophils % 0.3 % (0.0-0.8); Eosinophils # 0.7 10*3/uL (0.0-0.87); Eosinophils % 7.5 % (0.00-10.9); Hematocrit 31.3 VOL% (42.0-52.0); Hemoglobin 10.1 GM/DL (14.0-18.0); Immature Granulocytes % 0.8 %; Immature Granulocytes Absolute 0.07 #; Lymphocytes # 2.1 10*3/uL (1.4-4.0); Lymphocytes % 23.5 % (21.2-54.2); Mean Corpuscular HGB Conc 32.3 GM/DL (32-36); Mean Corpuscular Volume 92.9 FL (87-102); Mean Platelet Volume 8.3 FL (9.6-12.0); Monocytes % 6.6 % (1.7-12.7); Neutrophils % 61.3 % (38.7-73.9); Platelet Count 342 T/CUMM (130-400); Red Blood Count 3.37 MC/CUMM (3.8-5.5); Red Cell Distribution Width 14.9 % (9.3-17.3); White Blood Count 8.8 T/CUMM (4-12)
[2019-09-26 05:49] LABS: Hypochromasia Slight; Microcytosis 1+; Ovalocytes Slight; Platelet Estimate Normal
[2019-09-26 05:50] LABS: Calcium 7.2 MG/DL (8.5-10.1); Osmolality,Calculated 279.1 MOS/KG (273-304)
[2019-09-26] MEDS ORDERED: POTASSIUM CHLORIDE 20 MEQ TABLET PO ONE ×2 (06:03→10:00)
[2019-09-26] MEDS: ASPIRIN EC 81 MG TABLET PO SCH (09:55)
[2019-09-26] MEDS: CLOPIDOGREL 75 MG TABLET PO SCH (09:55)
[2019-09-26] MEDS: PANTOPRAZOLE 40 MG TABLET PO SCH (09:55)
[2019-09-26] MEDS: metroNIDAZOLE 500 MG TABLET PO SCH ×3 (09:55→21:10)
[2019-09-26] MEDS: MIDODRINE 5 MG TABLET PO SCH ×3 (09:55→21:11)
[2019-09-26] MEDS: INSULIN REGULAR 100 UNIT/ML SUBCUT SCH ×4 (10:13→21:11)
[2019-09-26] MEDS: ENOXAPARIN 30 MG/0.3 ML SYRINGE SUBCUT SCH (12:09)
[2019-09-26 12:14] LABS: Ferritin 900.2 ng/ml (26-388)
[2019-09-26] MEDS: POTASSIUM CHLORIDE 20 MEQ TABLET PO PRN ×3 (13:11→15:21)
[2019-09-26] MEDS: POTASSIUM CHLORIDE 20 MEQ TABLET PO SCH (13:11)
[2019-09-26] MEDS ORDERED: ALBUMIN 25% 25 GM in PREMIX 1 EACH IV ONE (16:00)
[2019-09-26] MEDS: HEPARIN 5,000 UNIT/1 ML VIAL SUBCUT SCH (17:57)
[2019-09-26] MEDS: ZALEPLON 5 MG CAPSULE PO PRN (21:10)
[2019-09-27] MEDS: VANCOMYCIN 50 MG/ML 60 ML/BOTTLE PO SCH ×4 (00:44→17:06)
[2019-09-27] MEDS: HEPARIN 5,000 UNIT/1 ML VIAL SUBCUT SCH ×3 (00:44→17:06)
[2019-09-27 06:19] LABS: Basophils % 0.4 % (0.0-0.8); Eosinophils # 0.4 10*3/uL (0.0-0.87); Eosinophils % 5.7 % (0.00-10.9); Hematocrit 29.2 VOL% (42.0-52.0); Hemoglobin 9.3 GM/DL (14.0-18.0); Immature Granulocytes % 1.2 %; Immature Granulocytes Absolute 0.09 #; Lymphocytes # 1.9 10*3/uL (1.4-4.0); Lymphocytes % 24.9 % (21.2-54.2); Mean Corpuscular HGB Conc 31.8 GM/DL (32-36); Mean Corpuscular Volume 93.9 FL (87-102); Mean Platelet Volume 8.1 FL (9.6-12.0); Monocytes % 8.1 % (1.7-12.7); Neutrophils % 59.7 % (38.7-73.9); Platelet Count 304 T/CUMM (130-400); Red Blood Count 3.11 MC/CUMM (3.8-5.5); Red Cell Distribution Width 15.4 % (9.3-17.3); White Blood Count 7.6 T/CUMM (4-12)
[2019-09-27 06:47] LABS: Ferritin 903.6 ng/ml (26-388)
[2019-09-27 06:50] LABS: Calcium 7.8 MG/DL (8.5-10.1); Osmolality,Calculated 280.5 MOS/KG (273-304)
[2019-09-27] MEDS: INSULIN REGULAR 100 UNIT/ML SUBCUT SCH ×4 (07:46→21:59)
[2019-09-27] MEDS: ASPIRIN EC 81 MG TABLET PO SCH (08:43)
[2019-09-27] MEDS: metroNIDAZOLE 500 MG TABLET PO SCH ×3 (08:43→21:59)
[2019-09-27] MEDS: PANTOPRAZOLE 40 MG TABLET PO SCH (08:44)
[2019-09-27] MEDS: MIDODRINE 5 MG TABLET PO SCH ×3 (08:44→21:59)
[2019-09-27] MEDS: POTASSIUM CHLORIDE 20 MEQ TABLET PO SCH (08:44)
[2019-09-27] MEDS: CLOPIDOGREL 75 MG TABLET PO SCH (08:44)
[2019-09-27] MEDS: POTASSIUM CHLORIDE 20 MEQ TABLET PO PRN (11:53)
[2019-09-27] MEDS: ZALEPLON 5 MG CAPSULE PO PRN (21:59)
[2019-09-28] MEDS: HEPARIN 5,000 UNIT/1 ML VIAL SUBCUT SCH ×2 (00:58→08:11)
[2019-09-28] MEDS: VANCOMYCIN 50 MG/ML 60 ML/BOTTLE PO SCH (03:21)
[2019-09-28 06:43] LABS: Ferritin 749.6 ng/ml (26-388)
[2019-09-28] MEDS: INSULIN REGULAR 100 UNIT/ML SUBCUT SCH ×2 (08:09→12:18)
[2019-09-28] MEDS: POTASSIUM CHLORIDE 20 MEQ TABLET PO SCH (08:11)
[2019-09-28] MEDS: MIDODRINE 5 MG TABLET PO SCH (08:11)
[2019-09-28] MEDS: PANTOPRAZOLE 40 MG TABLET PO SCH (08:11)
[2019-09-28] MEDS: ASPIRIN EC 81 MG TABLET PO SCH (08:11)
[2019-09-28] MEDS: metroNIDAZOLE 500 MG TABLET PO SCH (08:11)
[2019-09-28] MEDS: CLOPIDOGREL 75 MG TABLET PO SCH (08:11)
[2019-09-28] MEDS ORDERED: VANCOMYCIN 50 MG/ML 60 ML/BOTTLE PO SCH (09:00)
[2019-09-28 12:07] VITALS: BP 108/62
== END 2019-09-28 14:50 | disposition home health service (06) | DRG 371 ==
LOC: SUATTDRO 20:45 → N.ICU 20:45 → N.3E 09-25 16:02 → N.2E 09-26 10:51
PROVIDERS: ADMIT Internal Medicine; ATTEND Family Medicine

== ENCOUNTER 2020-02-22 19:35 | Inpatient (IN) ==
[2020-02-22] MEDS ORDERED: DEXTROSE 50% 25 GM/50 ML VIAL IV PRN ×2 (22:14→22:49)
[2020-02-22] MEDS ORDERED: GLUCAGON 1 MG VIAL IM PRN ×2 (22:14→22:49)
[2020-02-22] MEDS ORDERED: ONDANSETRON 4 MG/2 ML VIAL IV PRN (22:14)
[2020-02-22] MEDS ORDERED: LOPERAMIDE 2 MG CAPSULE PO PRN (22:42)
[2020-02-22] MEDS ORDERED: MAGNESIUM HYDROXIDE SUSP 30 ML UDCUP PO PRN (22:42)
[2020-02-22] MEDS ORDERED: diphenhydrAMINE CAP 25 MG CAPSULE PO PRN (22:42)
[2020-02-22] MEDS ORDERED: cefTRIAXone 1,000 MG VIAL IM ONE (22:47)
[2020-02-22] MEDS: SIMVASTATIN 40 MG TABLET PO SCH (23:20)
[2020-02-22] MEDS: cefTRIAXone 1,000 MG in SYRINGE 1 EACH IV SCH (23:20)
[2020-02-23] MEDS: ACETAMINOPHEN 325 MG TABLET PO PRN ×3 (00:09→11:51)
[2020-02-23 05:52] LABS: Basophils % 0.2 % (0.0-0.8); Eosinophils % 0.2 % (0.00-10.9); Hematocrit 25.4 VOL% (42.0-52.0); Hemoglobin 8.8 GM/DL (14.0-18.0); Immature Granulocytes % 1.9 %; Immature Granulocytes Absolute 0.08 #; Lymphocytes # 0.3 10*3/uL (1.4-4.0); Lymphocytes % 7.5 % (21.2-54.2); Mean Corpuscular HGB Conc 34.6 GM/DL (32-36); Mean Corpuscular Volume 90.4 FL (87-102); Mean Platelet Volume 9.8 FL (9.6-12.0); Monocytes % 3.3 % (1.7-12.7); Neutrophils % 86.9 % (38.7-73.9); Platelet Count 83 T/CUMM (130-400); Red Blood Count 2.81 MC/CUMM (3.8-5.5); Red Cell Distribution Width 14.2 % (9.3-17.3); White Blood Count 4.3 T/CUMM (4-12)
[2020-02-23 06:27] LABS: Albumin 2.9 G/DL (3.4-5.0); Bilirubin,Total 1.2 MG/DL (0.2-1.0); Calcium 7.6 MG/DL (8.5-10.1); Osmolality,Calculated 279.1 MOS/KG (273-304); Total Protein 7.2 G/DL (6.4-8.3)
[2020-02-23 06:44] LABS: Band Neutrophils 9 % (0-10); Hypochromasia Slight; Lymphocytes 8 % (20-55); Microcytosis 1+; Ovalocytes Slight; Segmented Neutrophils 76 % (50-85); Total Cells Counted 100
[2020-02-23 06:45] LABS: Platelet Estimate Decreased
[2020-02-23] MEDS: FERROUS SULFATE 325 MG TABLET PO SCH ×2 (08:12→21:41)
[2020-02-23] MEDS: MIDODRINE 5 MG TABLET PO SCH ×3 (08:12→21:41)
[2020-02-23] MEDS: MULTIVITAMIN (CENTRUM) TABLET PO SCH (08:12)
[2020-02-23] MEDS: lisinopriL 20 MG TABLET PO SCH (08:12)
[2020-02-23] MEDS: INSULIN GLARGINE 100 UNIT/ML SUBCUT SCH (08:13)
[2020-02-23] MEDS: METOPROLOL SUCCINATE XL 50 MG TABLET PO SCH (08:13)
[2020-02-23] MEDS: INSULIN LISPRO 100 UNIT/ML SUBCUT SCH ×3 (08:13→16:51)
[2020-02-23] MEDS: CLOPIDOGREL 75 MG TABLET PO SCH (08:13)
[2020-02-23] MEDS: ASPIRIN EC 81 MG TABLET PO SCH (08:13)
[2020-02-23] MEDS ORDERED: POTASSIUM CHLORIDE 20 MEQ TABLET PO SCH (08:30)
[2020-02-23] MEDS ORDERED: ENOXAPARIN 40 MG/0.4 ML SYRINGE SUBCUT SCH (09:00)
[2020-02-23] MEDS ORDERED: POTASSIUM CHLORIDE 20 MEQ TABLET PO ONE (11:00)
[2020-02-23] MEDS ORDERED: VANCOMYCIN INJ 1,500 MG in SODIUM CHLORIDE 0.9% 500 ML IV ONE (12:00)
[2020-02-23] MEDS ORDERED: EPOETIN ALFA-EPBX 10,000 UNIT/ML VIAL IV SCH (12:48)
[2020-02-23] MEDS ORDERED: VANCOMYCIN INJ 750 MG in SODIUM CHLORIDE 0.9% 250 ML IV PRN (15:16)
[2020-02-23 16:13] LABS: Hepatitis B Surface Ag Quant < 0.10 Index; Hepatitis B Surface Ag Result Negative (Negative); Hepatitis C Virus Ab Quant 0.12 Index; Hepatitis C Virus Ab Result Negative (Negative)
[2020-02-23] MEDS: ESCITALOPRAM 10 MG TABLET PO SCH (21:41)
[2020-02-23] MEDS: cefTRIAXone 1,000 MG in SYRINGE 1 EACH IV SCH (21:41)
[2020-02-23] MEDS: SIMVASTATIN 40 MG TABLET PO SCH (21:41)
[2020-02-24] MEDS: ACETAMINOPHEN 325 MG TABLET PO PRN ×2 (01:37→16:17)
[2020-02-24] MEDS: INSULIN GLARGINE 100 UNIT/ML SUBCUT SCH (10:38)
[2020-02-24] MEDS: INSULIN LISPRO 100 UNIT/ML SUBCUT SCH ×3 (10:38→16:26)
[2020-02-24] MEDS: ASPIRIN EC 81 MG TABLET PO SCH (10:39)
[2020-02-24] MEDS: MULTIVITAMIN (CENTRUM) TABLET PO SCH (10:39)
[2020-02-24] MEDS: FERROUS SULFATE 325 MG TABLET PO SCH ×2 (10:39→22:05)
[2020-02-24] MEDS: CLOPIDOGREL 75 MG TABLET PO SCH (10:40)
[2020-02-24] MEDS: MIDODRINE 5 MG TABLET PO SCH ×3 (10:40→22:06)
[2020-02-24] MEDS: HEPARIN 5,000 UNIT/1 ML VIAL SUBCUT SCH ×2 (10:40→22:10)
[2020-02-24] MEDS: lisinopriL 20 MG TABLET PO SCH (10:40)
[2020-02-24] MEDS: METOPROLOL SUCCINATE XL 50 MG TABLET PO SCH (10:41)
[2020-02-24] MEDS ORDERED: HEPARIN 10,000 UNIT/10 ML VIAL IV SCH (11:30)
[2020-02-24] MEDS ORDERED: LIDOCAINE 1%/EPI INJ 20 ML VIAL ONE (12:54)
[2020-02-24] MEDS ORDERED: propofoL 200 MG/20 ML VIAL IV ONE (13:30)
[2020-02-24] MEDS ORDERED: ACETAMINOPHEN INJ 1,000 MG in PREMIX 1 EACH IV STA (13:44)
[2020-02-24] MEDS ORDERED: ACETAMINOPHEN 1,000 MG/100 ML VIAL IV ONE (13:45)
[2020-02-24] MEDS ORDERED: GLUCAGON 1 MG VIAL IM PRN (15:53)
[2020-02-24] MEDS ORDERED: DEXTROSE 50% 25 GM/50 ML VIAL IV PRN (15:53)
[2020-02-24] MEDS ORDERED: VANCOMYCIN INJ 750 MG in SODIUM CHLORIDE 0.9% 250 ML IV ONE (17:00)
[2020-02-24] MEDS: ESCITALOPRAM 10 MG TABLET PO SCH (22:05)
[2020-02-24] MEDS: SIMVASTATIN 40 MG TABLET PO SCH (22:06)
[2020-02-24] MEDS: cefTRIAXone 1,000 MG in SYRINGE 1 EACH IV SCH (22:10)
[2020-02-25] MEDS: ACETAMINOPHEN 325 MG TABLET PO PRN ×3 (00:01→21:51)
[2020-02-25 04:22] LABS: Basophils % 0.3 % (0.0-0.8); Eosinophils # 0.2 10*3/uL (0.0-0.87); Eosinophils % 1.5 % (0.00-10.9); Hematocrit 22.6 VOL% (42.0-52.0); Immature Granulocytes % 1.1 %; Immature Granulocytes Absolute 0.11 #; Lymphocytes # 0.4 10*3/uL (1.4-4.0); Lymphocytes % 3.7 % (21.2-54.2); Mean Corpuscular HGB Conc 34.1 GM/DL (32-36); Mean Corpuscular Volume 92.2 FL (87-102); Monocytes % 7.1 % (1.7-12.7); Neutrophils % 86.3 % (38.7-73.9); Red Blood Count 2.45 MC/CUMM (3.8-5.5); Red Cell Distribution Width 15.7 % (9.3-17.3); White Blood Count 10.1 T/CUMM (4-12)
[2020-02-25 04:25] LABS: Hemoglobin 7.7 GM/DL (14.0-18.0); Platelet Count 57 T/CUMM (130-400)
[2020-02-25 04:42] LABS: Calcium 7.1 MG/DL (8.5-10.1); Osmolality,Calculated 277.8 MOS/KG (273-304)
[2020-02-25 05:13] LABS: Band Neutrophils 13 % (0-10); Eosinophils 2 % (0-10); Hypochromasia Slight; Lymphocytes 5 % (20-55); Platelet Estimate Decreased; Segmented Neutrophils 72 % (50-85); Total Cells Counted 100
[2020-02-25] MEDS: INSULIN GLARGINE 100 UNIT/ML SUBCUT SCH (10:32)
[2020-02-25] MEDS: ASPIRIN EC 81 MG TABLET PO SCH (10:33)
[2020-02-25] MEDS: CLOPIDOGREL 75 MG TABLET PO SCH (10:33)
[2020-02-25] MEDS: lisinopriL 20 MG TABLET PO SCH (10:33)
[2020-02-25] MEDS: MIDODRINE 5 MG TABLET PO SCH ×3 (10:33→21:52)
[2020-02-25] MEDS: FERROUS SULFATE 325 MG TABLET PO SCH ×2 (10:33→21:52)
[2020-02-25] MEDS: METOPROLOL SUCCINATE XL 50 MG TABLET PO SCH (10:34)
[2020-02-25] MEDS: HEPARIN 5,000 UNIT/1 ML VIAL SUBCUT SCH ×2 (10:34→21:52)
[2020-02-25] MEDS: MULTIVITAMIN (CENTRUM) TABLET PO SCH (10:34)
[2020-02-25] MEDS: INSULIN LISPRO 100 UNIT/ML SUBCUT SCH ×4 (10:34→18:19)
[2020-02-25] MEDS: POTASSIUM CHLORIDE RIDER 10 MEQ in PREMIX 1 EACH IV PRN ×3 (15:07→23:21)
[2020-02-25] MEDS: SIMVASTATIN 40 MG TABLET PO SCH (21:51)
[2020-02-25] MEDS: ESCITALOPRAM 10 MG TABLET PO SCH (21:52)
[2020-02-26] MEDS: POTASSIUM CHLORIDE RIDER 10 MEQ in PREMIX 1 EACH IV PRN ×4 (02:06→23:05)
[2020-02-26 05:52] LABS: Basophils % 0.2 % (0.0-0.8); Eosinophils # 0.2 10*3/uL (0.0-0.87); Eosinophils % 1.5 % (0.00-10.9); Hematocrit 24.7 VOL% (42.0-52.0); Hemoglobin 8.4 GM/DL (14.0-18.0); Immature Granulocytes % 0.8 %; Lymphocytes # 0.8 10*3/uL (1.4-4.0); Lymphocytes % 6.5 % (21.2-54.2); Mean Corpuscular Volume 91.5 FL (87-102); Mean Platelet Volume 11.9 FL (9.6-12.0); Monocytes % 6.8 % (1.7-12.7); Neutrophils % 84.2 % (38.7-73.9); Red Cell Distribution Width 16.3 % (9.3-17.3); White Blood Count 12.4 T/CUMM (4-12)
[2020-02-26 06:05] LABS: Calcium 7.2 MG/DL (8.5-10.1); Osmolality,Calculated 283.1 MOS/KG (273-304)
[2020-02-26 06:06] LABS: Platelet Count 54 T/CUMM (130-400)
[2020-02-26 06:16] LABS: Band Neutrophils 8 % (0-10); Eosinophils 2 % (0-10); Lymphocytes 12 % (20-55); Segmented Neutrophils 75 % (50-85); Total Cells Counted 100
[2020-02-26 06:17] LABS: Burr Cells Slight; Hypochromasia 1+; Microcytosis 1+; Ovalocytes Slight; Platelet Estimate Decreased
[2020-02-26] MEDS: INSULIN LISPRO 100 UNIT/ML SUBCUT SCH ×3 (08:45→15:59)
[2020-02-26] MEDS: INSULIN GLARGINE 100 UNIT/ML SUBCUT SCH (10:01)
[2020-02-26] MEDS: MIDODRINE 5 MG TABLET PO SCH ×3 (10:01→20:45)
[2020-02-26] MEDS: METOPROLOL SUCCINATE XL 50 MG TABLET PO SCH (10:01)
[2020-02-26] MEDS: ACETAMINOPHEN 325 MG TABLET PO PRN ×3 (10:02→22:32)
[2020-02-26] MEDS: CLOPIDOGREL 75 MG TABLET PO SCH (10:02)
[2020-02-26] MEDS: lisinopriL 20 MG TABLET PO SCH (10:02)
[2020-02-26] MEDS: FERROUS SULFATE 325 MG TABLET PO SCH ×2 (10:02→20:45)
[2020-02-26] MEDS: MULTIVITAMIN (CENTRUM) TABLET PO SCH (10:02)
[2020-02-26] MEDS: ASPIRIN EC 81 MG TABLET PO SCH (10:02)
[2020-02-26] MEDS: HEPARIN 5,000 UNIT/1 ML VIAL SUBCUT SCH ×2 (10:03→20:46)
[2020-02-26] MEDS: ESCITALOPRAM 10 MG TABLET PO SCH (20:45)
[2020-02-26] MEDS: SIMVASTATIN 40 MG TABLET PO SCH (20:45)
[2020-02-26] MEDS ORDERED: ACETAMINOPHEN 650 MG SUPP RECTAL PRN (21:29)
[2020-02-27] MEDS: POTASSIUM CHLORIDE RIDER 10 MEQ in PREMIX 1 EACH IV PRN (00:44)
[2020-02-27 05:55] LABS: Basophils % 0.1 % (0.0-0.8); Eosinophils # 0.2 10*3/uL (0.0-0.87); Hemoglobin 8.3 GM/DL (14.0-18.0); Immature Granulocytes % 1.5 %; Immature Granulocytes Absolute 0.22 #; Lymphocytes # 1.2 10*3/uL (1.4-4.0); Lymphocytes % 7.9 % (21.2-54.2); Mean Corpuscular HGB Conc 34.6 GM/DL (32-36); Mean Corpuscular Volume 90.9 FL (87-102); Mean Platelet Volume 11.6 FL (9.6-12.0); Monocytes % 5.5 % (1.7-12.7); Platelet Count 58 T/CUMM (130-400); Red Blood Count 2.64 MC/CUMM (3.8-5.5); Red Cell Distribution Width 16.6 % (9.3-17.3); White Blood Count 14.7 T/CUMM (4-12)
[2020-02-27 06:10] LABS: Bilirubin,Total 4.7 MG/DL (0.2-1.0); Calcium 7.4 MG/DL (8.5-10.1); Osmolality,Calculated 288.9 MOS/KG (273-304); Total Protein 6.3 G/DL (6.4-8.3)
[2020-02-27 06:26] LABS: Lymphocytes 3 % (20-55); Platelet Estimate Decreased; Segmented Neutrophils 91 % (50-85); Total Cells Counted 100
[2020-02-27 06:27] LABS: Hypochromasia 1+; Microcytosis 1+; Ovalocytes Slight
[2020-02-27] MEDS: INSULIN LISPRO 100 UNIT/ML SUBCUT SCH ×3 (09:39→16:50)
[2020-02-27] MEDS: FERROUS SULFATE 325 MG TABLET PO SCH ×2 (10:19→20:31)
[2020-02-27] MEDS: METOPROLOL SUCCINATE XL 50 MG TABLET PO SCH (10:19)
[2020-02-27] MEDS: MULTIVITAMIN (CENTRUM) TABLET PO SCH (10:19)
[2020-02-27] MEDS: ASPIRIN EC 81 MG TABLET PO SCH (10:20)
[2020-02-27] MEDS: HEPARIN 5,000 UNIT/1 ML VIAL SUBCUT SCH ×2 (10:20→20:31)
[2020-02-27] MEDS: MIDODRINE 5 MG TABLET PO SCH ×3 (10:20→20:31)
[2020-02-27] MEDS: INSULIN GLARGINE 100 UNIT/ML SUBCUT SCH (10:20)
[2020-02-27] MEDS: lisinopriL 20 MG TABLET PO SCH (10:20)
[2020-02-27] MEDS: CLOPIDOGREL 75 MG TABLET PO SCH (10:20)
[2020-02-27] MEDS ORDERED: VANCOMYCIN INJ 750 MG in SODIUM CHLORIDE 0.9% 250 ML IV ONE (17:00)
[2020-02-27] MEDS: SIMVASTATIN 40 MG TABLET PO SCH (20:31)
[2020-02-27] MEDS: ESCITALOPRAM 10 MG TABLET PO SCH (20:31)
[2020-02-28 07:09] LABS: Basophils % 0.2 % (0.0-0.8); Eosinophils # 0.2 10*3/uL (0.0-0.87); Eosinophils % 1.2 % (0.00-10.9); Hematocrit 23.8 VOL% (42.0-52.0); Hemoglobin 8.1 GM/DL (14.0-18.0); Immature Granulocytes Absolute 0.14 #; Lymphocytes # 1.7 10*3/uL (1.4-4.0); Lymphocytes % 12.9 % (21.2-54.2); Mean Corpuscular Volume 91.5 FL (87-102); Mean Platelet Volume 10.8 FL (9.6-12.0); Monocytes % 7.3 % (1.7-12.7); Neutrophils % 77.4 % (38.7-73.9); Red Cell Distribution Width 16.8 % (9.3-17.3); White Blood Count 13.4 T/CUMM (4-12)
[2020-02-28] MEDS: INSULIN LISPRO 100 UNIT/ML SUBCUT SCH ×3 (07:11→17:14)
[2020-02-28 07:12] LABS: Platelet Count 70 T/CUMM (130-400)
[2020-02-28 07:26] LABS: Calcium 7.4 MG/DL (8.5-10.1); Osmolality,Calculated 292.2 MOS/KG (273-304)
[2020-02-28 07:33] LABS: Hypochromasia 1+; Microcytosis 1+; Platelet Estimate Decreased
[2020-02-28] MEDS ORDERED: BUPIVACAINE MPF 0.25% 30 ML VIAL ONE (12:24)
[2020-02-28] MEDS ORDERED: LIDOCAINE 1%/EPI INJ 20 ML VIAL ONE (12:25)
[2020-02-28] MEDS ORDERED: LIDOCAINE 2% 5 ML VIAL ONE (12:35)
[2020-02-28] MEDS ORDERED: propofoL 200 MG/20 ML VIAL IV ONE (12:35)
[2020-02-28] MEDS ORDERED: KETAMINE 500 MG/10 ML VIAL ONE (13:13)
[2020-02-28] MEDS: FERROUS SULFATE 325 MG TABLET PO SCH ×2 (14:01→20:04)
[2020-02-28] MEDS: MIDODRINE 5 MG TABLET PO SCH ×3 (14:02→20:04)
[2020-02-28] MEDS: HEPARIN 5,000 UNIT/1 ML VIAL SUBCUT SCH ×2 (14:02→20:04)
[2020-02-28] MEDS: ASPIRIN EC 81 MG TABLET PO SCH (14:33)
[2020-02-28] MEDS: lisinopriL 20 MG TABLET PO SCH (14:33)
[2020-02-28] MEDS: MULTIVITAMIN (CENTRUM) TABLET PO SCH (14:33)
[2020-02-28] MEDS: INSULIN GLARGINE 100 UNIT/ML SUBCUT SCH (14:33)
[2020-02-28] MEDS: CLOPIDOGREL 75 MG TABLET PO SCH (14:33)
[2020-02-28] MEDS: METOPROLOL SUCCINATE XL 50 MG TABLET PO SCH (14:34)
[2020-02-28] MEDS: CEFTAROLINE 200 MG in SODIUM CHLORIDE 0.9% 100 ML IV SCH ×2 (15:04→22:15)
[2020-02-28] MEDS ORDERED: HYDROmorphone 2 MG/1 ML VIAL IV ONE (15:50)
[2020-02-28] MEDS ORDERED: HEPARIN 10,000 UNIT/10 ML VIAL IV SCH (17:00)
[2020-02-28] MEDS: SIMVASTATIN 40 MG TABLET PO SCH (20:04)
[2020-02-28] MEDS: ESCITALOPRAM 10 MG TABLET PO SCH (20:04)
[2020-02-29 04:29] LABS: Basophils % 0.2 % (0.0-0.8); Eosinophils # 0.1 10*3/uL (0.0-0.87); Eosinophils % 0.8 % (0.00-10.9); Hematocrit 24.7 VOL% (42.0-52.0); Hemoglobin 8.3 GM/DL (14.0-18.0); Immature Granulocytes % 1.1 %; Immature Granulocytes Absolute 0.11 #; Lymphocytes # 1.6 10*3/uL (1.4-4.0); Lymphocytes % 15.3 % (21.2-54.2); Mean Corpuscular HGB Conc 33.6 GM/DL (32-36); Mean Corpuscular Volume 90.5 FL (87-102); Mean Platelet Volume 10.2 FL (9.6-12.0); Monocytes % 8.7 % (1.7-12.7); NRBC # 0.02 10*3/uL; Neutrophils % 73.9 % (38.7-73.9); Red Blood Count 2.73 MC/CUMM (3.8-5.5); White Blood Count 10.2 T/CUMM (4-12)
[2020-02-29 04:37] LABS: Platelet Count 75 T/CUMM (130-400)
[2020-02-29 04:53] LABS: Hypochromasia 1+; Ovalocytes Slight; Platelet Estimate Decreased
[2020-02-29 04:54] LABS: Calcium 7.5 MG/DL (8.5-10.1); Microcytosis 1+; Osmolality,Calculated 285.5 MOS/KG (273-304)
[2020-02-29] MEDS: CEFTAROLINE 200 MG in SODIUM CHLORIDE 0.9% 100 ML IV SCH ×3 (05:31→21:11)
[2020-02-29] MEDS: INSULIN LISPRO 100 UNIT/ML SUBCUT SCH ×3 (07:35→16:39)
[2020-02-29] MEDS: ASPIRIN EC 81 MG TABLET PO SCH (10:49)
[2020-02-29] MEDS: CLOPIDOGREL 75 MG TABLET PO SCH (10:50)
[2020-02-29] MEDS: INSULIN GLARGINE 100 UNIT/ML SUBCUT SCH (10:50)
[2020-02-29] MEDS: FERROUS SULFATE 325 MG TABLET PO SCH ×2 (10:50→21:11)
[2020-02-29] MEDS: MULTIVITAMIN (CENTRUM) TABLET PO SCH (10:50)
[2020-02-29] MEDS: lisinopriL 20 MG TABLET PO SCH ×2 (10:50→15:30)
[2020-02-29] MEDS: HEPARIN 5,000 UNIT/1 ML VIAL SUBCUT SCH ×2 (10:50→21:12)
[2020-02-29] MEDS: MIDODRINE 5 MG TABLET PO SCH ×3 (10:51→21:12)
[2020-02-29] MEDS: METOPROLOL SUCCINATE XL 50 MG TABLET PO SCH ×2 (10:51→15:30)
[2020-02-29] MEDS ORDERED: VANCOMYCIN INJ 750 MG in SODIUM CHLORIDE 0.9% 250 ML IV ONE (17:00)
[2020-02-29] MEDS: ESCITALOPRAM 10 MG TABLET PO SCH (21:11)
[2020-02-29] MEDS: SIMVASTATIN 40 MG TABLET PO SCH (21:12)
[2020-03-01 05:37] LABS: Basophils % 0.2 % (0.0-0.8); Eosinophils # 0.1 10*3/uL (0.0-0.87); Eosinophils % 0.5 % (0.00-10.9); Hematocrit 26.8 VOL% (42.0-52.0); Hemoglobin 9.2 GM/DL (14.0-18.0); Immature Granulocytes % 1.5 %; Immature Granulocytes Absolute 0.18 #; Lymphocytes # 1.7 10*3/uL (1.4-4.0); Lymphocytes % 14.5 % (21.2-54.2); Mean Corpuscular HGB Conc 34.3 GM/DL (32-36); Mean Corpuscular Volume 90.2 FL (87-102); Mean Platelet Volume 10.1 FL (9.6-12.0); Monocytes % 8.7 % (1.7-12.7); Neutrophils % 74.6 % (38.7-73.9); Red Blood Count 2.97 MC/CUMM (3.8-5.5); Red Cell Distribution Width 16.7 % (9.3-17.3)
[2020-03-01 05:44] LABS: Platelet Count 93 T/CUMM (130-400)
[2020-03-01 05:49] LABS: Calcium 8.2 MG/DL (8.5-10.1); Osmolality,Calculated 282.5 MOS/KG (273-304)
[2020-03-01 06:00] LABS: Hypochromasia 1+; Platelet Estimate Decreased
[2020-03-01 06:01] LABS: Microcytosis Slight; Ovalocytes Slight
[2020-03-01] MEDS: CEFTAROLINE 200 MG in SODIUM CHLORIDE 0.9% 100 ML IV SCH ×3 (06:02→21:08)
[2020-03-01] MEDS: INSULIN LISPRO 100 UNIT/ML SUBCUT SCH ×3 (09:44→17:34)
[2020-03-01] MEDS: HEPARIN 5,000 UNIT/1 ML VIAL SUBCUT SCH (09:44)
[2020-03-01] MEDS: INSULIN GLARGINE 100 UNIT/ML SUBCUT SCH (09:44)
[2020-03-01] MEDS: METOPROLOL SUCCINATE XL 50 MG TABLET PO SCH (09:45)
[2020-03-01] MEDS: FERROUS SULFATE 325 MG TABLET PO SCH ×2 (09:45→21:08)
[2020-03-01] MEDS: MULTIVITAMIN (CENTRUM) TABLET PO SCH (09:45)
[2020-03-01] MEDS: lisinopriL 20 MG TABLET PO SCH (09:45)
[2020-03-01] MEDS: CLOPIDOGREL 75 MG TABLET PO SCH (09:45)
[2020-03-01] MEDS: ASPIRIN EC 81 MG TABLET PO SCH (09:45)
[2020-03-01] MEDS: MIDODRINE 5 MG TABLET PO SCH ×3 (09:46→21:08)
[2020-03-01] MEDS: MENTHOL/ZINC OXIDE OINT 71 GM JAR TOP SCH ×2 (17:26→21:08)
[2020-03-01] MEDS: ESCITALOPRAM 10 MG TABLET PO SCH (21:08)
[2020-03-01] MEDS: SIMVASTATIN 40 MG TABLET PO SCH (21:08)
[2020-03-02] MEDS: CEFTAROLINE 200 MG in SODIUM CHLORIDE 0.9% 100 ML IV SCH (05:53)
[2020-03-02] MEDS: INSULIN LISPRO 100 UNIT/ML SUBCUT SCH ×3 (08:47→18:15)
[2020-03-02 10:44] LABS: Basophils % 0.2 % (0.0-0.8); Eosinophils # 0.1 10*3/uL (0.0-0.87); Eosinophils % 0.4 % (0.00-10.9); Hematocrit 25.8 VOL% (42.0-52.0); Hemoglobin 8.8 GM/DL (14.0-18.0); Immature Granulocytes % 0.8 %; Lymphocytes # 1.2 10*3/uL (1.4-4.0); Lymphocytes % 9.3 % (21.2-54.2); Mean Corpuscular HGB Conc 34.1 GM/DL (32-36); Mean Corpuscular Volume 90.5 FL (87-102); Neutrophils % 84.3 % (38.7-73.9); Red Blood Count 2.85 MC/CUMM (3.8-5.5); Red Cell Distribution Width 16.7 % (9.3-17.3); White Blood Count 12.5 T/CUMM (4-12)
[2020-03-02 10:50] LABS: Platelet Count 114 T/CUMM (130-400)
[2020-03-02 11:03] LABS: Albumin 1.9 G/DL (3.4-5.0); Bilirubin,Total 3.1 MG/DL (0.2-1.0); Calcium 8.1 MG/DL (8.5-10.1); Osmolality,Calculated 283.7 MOS/KG (273-304); Total Protein 8.1 G/DL (6.4-8.3)
[2020-03-02] MEDS ORDERED: HEPARIN 10,000 UNIT/10 ML VIAL IV PRN (11:47)
[2020-03-02] MEDS ORDERED: MIDAZOLAM 10 MG/2 ML VIAL ONE ×2 (12:16→14:43)
[2020-03-02] MEDS ORDERED: ALBUTEROL 2.5 MG/3 ML NEB RESP TX PRN (12:25)
[2020-03-02] MEDS ORDERED: PHENYLEPHRINE DRIP 40 MG/250 ML PREMIX IV ONE (12:44)
[2020-03-02 12:52] LABS: Basophils % 0.2 % (0.0-0.8); Eosinophils # 0.1 10*3/uL (0.0-0.87); Eosinophils % 0.3 % (0.00-10.9); Hematocrit 27.3 VOL% (42.0-52.0); Hemoglobin 8.9 GM/DL (14.0-18.0); Immature Granulocytes % 2.5 %; Immature Granulocytes Absolute 0.44 #; Lymphocytes % 11.3 % (21.2-54.2); Mean Corpuscular HGB Conc 32.6 GM/DL (32-36); Mean Corpuscular Volume 94.8 FL (87-102); Mean Platelet Volume 9.9 FL (9.6-12.0); Monocytes % 6.7 % (1.7-12.7); NRBC # 0.07 10*3/uL; Platelet Count 111 T/CUMM (130-400); Red Blood Count 2.88 MC/CUMM (3.8-5.5); Red Cell Distribution Width 17.1 % (9.3-17.3); White Blood Count 17.6 T/CUMM (4-12)
[2020-03-02] MEDS: PHENYLEPHRINE DRIP 40 MG/250 ML PREMIX IV PRN (12:52)
[2020-03-02] MEDS: PANTOPRAZOLE 40 MG VIAL IV SCH (13:25)
[2020-03-02] MEDS ORDERED: INSULIN LISPRO 100 UNIT/ML SUBCUT SCH (13:30)
[2020-03-02 13:44] LABS: ABG Base Excess -1.1 MMOL/L (-2.5-2.5); ABG HCO3 23.5 MMOL/L (20-26); ABG Oxygen Saturation 99.4 % (95-100); ABG PCO2 40.5 MM HG (35-48); ABG PH 7.379 (7.35-7.45); ABG TCO2 22.1 MMOL/L (23-27)
[2020-03-02 13:45] LABS: Bilirubin,Total 3.2 MG/DL (0.2-1.0); Calcium 8.2 MG/DL (8.5-10.1); Total Protein 8.4 G/DL (6.4-8.3)
[2020-03-02] MEDS: PIPERACILLIN/TAZOBACTAM 3,375 MG in SODIUM CHLORIDE 0.9% 100 ML IV SCH (13:55)
[2020-03-02] MEDS: MENTHOL/ZINC OXIDE OINT 71 GM JAR TOP SCH ×2 (14:30→22:08)
[2020-03-02] MEDS: MIDODRINE 5 MG TABLET PO SCH ×3 (14:30→21:18)
[2020-03-02] MEDS ORDERED: MIDAZOLAM 2 MG/2 ML VIAL IV ONE ×2 (14:45→14:48)
[2020-03-02] MEDS: CLOPIDOGREL 75 MG TABLET PO SCH (15:21)
[2020-03-02] MEDS: MULTIVITAMIN (CENTRUM) TABLET PO SCH (15:21)
[2020-03-02] MEDS: FERROUS SULFATE 325 MG TABLET PO SCH ×2 (15:21→21:18)
[2020-03-02] MEDS: lisinopriL 20 MG TABLET PO SCH (16:25)
[2020-03-02] MEDS: INSULIN GLARGINE 100 UNIT/ML SUBCUT SCH (16:25)
[2020-03-02] MEDS: METOPROLOL SUCCINATE XL 50 MG TABLET PO SCH (16:25)
[2020-03-02] MEDS: ESCITALOPRAM 10 MG TABLET PO SCH (21:18)
[2020-03-02] MEDS: APIXABAN 2.5 MG TABLET PO SCH (21:18)
[2020-03-02] MEDS: ACETAMINOPHEN 325 MG TABLET PO PRN (21:50)
[2020-03-03] MEDS: INSULIN LISPRO 100 UNIT/ML SUBCUT SCH ×4 (00:25→18:02)
[2020-03-03] MEDS: PIPERACILLIN/TAZOBACTAM 3,375 MG in SODIUM CHLORIDE 0.9% 100 ML IV SCH ×2 (00:26→12:34)
[2020-03-03] MEDS: MENTHOL/ZINC OXIDE OINT 71 GM JAR TOP SCH ×3 (03:39→20:45)
[2020-03-03 04:32] LABS: ABG Base Excess -1.9 MMOL/L (-2.5-2.5); ABG HCO3 22.4 MMOL/L (20-26); ABG Oxygen Saturation 98.8 % (95-100); ABG PCO2 35.8 MM HG (35-48); ABG PH 7.414 (7.35-7.45); ABG PO2 220.5 MM HG (80-95); ABG TCO2 23.5 MMOL/L (23-27); Allen Test Positive; Pt O2 Delivery Device Ventilator
[2020-03-03 05:14] LABS: Basophils % 0.2 % (0.0-0.8); Eosinophils % 0.2 % (0.00-10.9); Hematocrit 23.6 VOL% (42.0-52.0); Hemoglobin 7.6 GM/DL (14.0-18.0); Immature Granulocytes % 1.4 %; Lymphocytes # 1.4 10*3/uL (1.4-4.0); Lymphocytes % 9.7 % (21.2-54.2); Mean Corpuscular HGB Conc 32.2 GM/DL (32-36); Mean Corpuscular Volume 95.2 FL (87-102); Mean Platelet Volume 10.1 FL (9.6-12.0); Monocytes % 4.6 % (1.7-12.7); Neutrophils % 83.9 % (38.7-73.9); Platelet Count 101 T/CUMM (130-400); Red Blood Count 2.48 MC/CUMM (3.8-5.5); Red Cell Distribution Width 16.4 % (9.3-17.3); White Blood Count 14.5 T/CUMM (4-12)
[2020-03-03 05:41] LABS: Albumin 1.8 G/DL (3.4-5.0); Bilirubin,Total 2.5 MG/DL (0.2-1.0); Osmolality,Calculated 286.1 MOS/KG (273-304)
[2020-03-03 07:43] LABS: Albumin 1.9 G/DL (3.4-5.0); Bilirubin,Direct 2.02 MG/DL (0.0-0.20); Bilirubin,Indirect 0.7 MG/DL (0.0-1.0); Bilirubin,Total 2.7 MG/DL (0.2-1.0); Total Protein 8.2 G/DL (6.4-8.3)
[2020-03-03] MEDS: MULTIVITAMIN (CENTRUM) TABLET PO SCH (09:11)
[2020-03-03] MEDS: FERROUS SULFATE 325 MG TABLET PO SCH ×2 (09:11→20:45)
[2020-03-03] MEDS: APIXABAN 2.5 MG TABLET PO SCH ×2 (09:11→20:45)
[2020-03-03] MEDS: MIDODRINE 5 MG TABLET PO SCH ×3 (09:11→20:45)
[2020-03-03] MEDS: PANTOPRAZOLE 40 MG VIAL IV SCH (12:30)
[2020-03-03] MEDS: methylPREDNISolone SOD SUC 40 MG/1 ML VIAL IV SCH (14:20)
[2020-03-03] MEDS: ALBUTEROL/IPRATROPIUM 3 ML NEB RESP TX SCH ×3 (14:21→23:40)
[2020-03-03] MEDS: DEXMEDETOMIDINE 200 MCG in SODIUM CHLORIDE 0.9% 48 ML IV PRN (14:41)
[2020-03-03] MEDS: ESCITALOPRAM 10 MG TABLET PO SCH (20:45)
[2020-03-03] MEDS ORDERED: INSULIN GLARGINE 100 UNIT/ML SUBCUT SCH (21:00)
[2020-03-04] MEDS: PIPERACILLIN/TAZOBACTAM 3,375 MG in SODIUM CHLORIDE 0.9% 100 ML IV SCH ×2 (00:56→14:20)
[2020-03-04] MEDS: INSULIN LISPRO 100 UNIT/ML SUBCUT SCH ×4 (00:56→18:03)
[2020-03-04] MEDS: DEXMEDETOMIDINE 400 MCG in SODIUM CHLORIDE 0.9% 96 ML IV PRN ×2 (02:33→21:01)
[2020-03-04] MEDS: DEXMEDETOMIDINE 200 MCG in SODIUM CHLORIDE 0.9% 48 ML IV PRN (02:33)
[2020-03-04] MEDS: methylPREDNISolone SOD SUC 40 MG/1 ML VIAL IV SCH ×2 (03:16→14:25)
[2020-03-04 03:49] LABS: ABG Base Excess -7.2 MMOL/L (-2.5-2.5); ABG HCO3 18.5 MMOL/L (20-26); ABG Oxygen Saturation 98.8 % (95-100); ABG PCO2 39.7 MM HG (35-48); ABG PH 7.287 (7.35-7.45); ABG TCO2 17.6 MMOL/L (23-27); Allen Test Positive; Pt O2 Delivery Device Ventilator
[2020-03-04] MEDS: ALBUTEROL/IPRATROPIUM 3 ML NEB RESP TX SCH ×6 (04:06→23:11)
[2020-03-04 05:41] LABS: Basophils % 0.1 % (0.0-0.8); Hematocrit 22.9 VOL% (42.0-52.0); Hemoglobin 7.2 GM/DL (14.0-18.0); Immature Granulocytes % 0.8 %; Immature Granulocytes Absolute 0.18 #; Lymphocytes # 0.7 10*3/uL (1.4-4.0); Lymphocytes % 3.2 % (21.2-54.2); Mean Corpuscular HGB Conc 31.4 GM/DL (32-36); Mean Corpuscular Volume 99.6 FL (87-102); Monocytes % 1.6 % (1.7-12.7); Neutrophils % 94.3 % (38.7-73.9); Platelet Count 128 T/CUMM (130-400); White Blood Count 21.7 T/CUMM (4-12)
[2020-03-04 06:14] LABS: Albumin 1.9 G/DL (3.4-5.0); Calcium 7.4 MG/DL (8.5-10.1); Osmolality,Calculated 305.2 MOS/KG (273-304); Total Protein 8.6 G/DL (6.4-8.3)
[2020-03-04 06:16] LABS: Albumin 1.9 G/DL (3.4-5.0); Bilirubin,Direct 1.64 MG/DL (0.0-0.20); Bilirubin,Indirect 0.7 MG/DL (0.0-1.0); Bilirubin,Total 2.3 MG/DL (0.2-1.0); Osmolality,Calculated 307.1 MOS/KG (273-304); Total Protein 8.2 G/DL (6.4-8.3)
[2020-03-04 06:22] LABS: Band Neutrophils 5 % (0-10); Hypochromasia 1+; Lymphocytes 2 % (20-55); Nucleated Red Blood Cells 1 (0-5); Platelet Estimate Normal; Segmented Neutrophils 92 % (50-85); Total Cells Counted 100
[2020-03-04] MEDS: APIXABAN 2.5 MG TABLET PO SCH ×2 (08:00→21:50)
[2020-03-04] MEDS: MENTHOL/ZINC OXIDE OINT 71 GM JAR TOP SCH ×2 (08:00→21:49)
[2020-03-04] MEDS: FERROUS SULFATE 325 MG TABLET PO SCH ×2 (08:00→21:49)
[2020-03-04] MEDS: MULTIVITAMIN (CENTRUM) TABLET PO SCH (08:00)
[2020-03-04] MEDS: MIDODRINE 5 MG TABLET PO SCH ×3 (08:00→21:14)
[2020-03-04] MEDS ORDERED: GLUCAGON 1 MG VIAL IM PRN (12:30)
[2020-03-04] MEDS: INSULIN GLARGINE 100 UNIT/ML SUBCUT SCH ×2 (14:18→21:49)
[2020-03-04] MEDS: PANTOPRAZOLE 40 MG VIAL IV SCH (14:20)
[2020-03-04] MEDS ORDERED: INSULIN LISPRO 100 UNIT/ML SUBCUT SCH (16:30)
[2020-03-04] MEDS: ESCITALOPRAM 10 MG TABLET PO SCH (21:49)
[2020-03-05] MEDS ORDERED: INSULIN REGULAR 100 UNIT/ML IV ONE ×3 (00:34→05:28)
[2020-03-05] MEDS: INSULIN LISPRO 100 UNIT/ML SUBCUT SCH ×6 (00:54→21:35)
[2020-03-05] MEDS: PIPERACILLIN/TAZOBACTAM 3,375 MG in SODIUM CHLORIDE 0.9% 100 ML IV SCH (01:15)
[2020-03-05] MEDS: ALBUTEROL/IPRATROPIUM 3 ML NEB RESP TX SCH ×6 (03:15→23:45)
[2020-03-05] MEDS: methylPREDNISolone SOD SUC 40 MG/1 ML VIAL IV SCH (04:09)
[2020-03-05 04:17] LABS: Basophils % 0.1 % (0.0-0.8); Hematocrit 23.9 VOL% (42.0-52.0); Immature Granulocytes % 0.9 %; Immature Granulocytes Absolute 0.22 #; Lymphocytes # 0.5 10*3/uL (1.4-4.0); Lymphocytes % 2.1 % (21.2-54.2); Mean Corpuscular HGB Conc 29.3 GM/DL (32-36); Mean Corpuscular Volume 107.2 FL (87-102); Mean Platelet Volume 10.2 FL (9.6-12.0); Monocytes % 2.4 % (1.7-12.7); Neutrophils % 94.5 % (38.7-73.9); Platelet Count 136 T/CUMM (130-400); Red Blood Count 2.23 MC/CUMM (3.8-5.5); Red Cell Distribution Width 19.1 % (9.3-17.3); White Blood Count 25.7 T/CUMM (4-12)
[2020-03-05 04:34] LABS: Calcium 5.9 MG/DL (8.5-10.1); Osmolality,Calculated 336.2 MOS/KG (273-304)
[2020-03-05 04:36] LABS: ABG Base Excess -9.7 MMOL/L (-2.5-2.5); ABG HCO3 16.7 MMOL/L (20-26); ABG Oxygen Saturation 97.9 % (95-100); ABG PCO2 38.9 MM HG (35-48); ABG PO2 124.3 MM HG (80-95); ABG TCO2 17.9 MMOL/L (23-27)
[2020-03-05 04:37] LABS: Allen Test Positive; Pt O2 Delivery Device Ventilator
[2020-03-05] MEDS ORDERED: SODIUM CHLORIDE 0.9% 500 ML IV ONE (05:28)
[2020-03-05 06:13] LABS: Band Neutrophils 2 % (0-10); Hypochromasia 2+; Lymphocytes 2 % (20-55); Platelet Estimate Decreased; Segmented Neutrophils 94 % (50-85); Total Cells Counted 100
[2020-03-05] MEDS ORDERED: LEVOFLOXACIN INJ 750 MG in PREMIX 1 EACH IV SCH (09:00)
[2020-03-05] MEDS ORDERED: predniSONE 20 MG TABLET PER TUBE SCH (09:00)
[2020-03-05] MEDS: MENTHOL/ZINC OXIDE OINT 71 GM JAR TOP SCH ×2 (09:58→21:35)
[2020-03-05] MEDS: APIXABAN 2.5 MG TABLET PO SCH ×2 (09:59→21:36)
[2020-03-05] MEDS: MULTIVITAMIN (CENTRUM) TABLET PO SCH (09:59)
[2020-03-05] MEDS: MIDODRINE 5 MG TABLET PO SCH ×3 (09:59→21:36)
[2020-03-05] MEDS: FERROUS SULFATE 325 MG TABLET PO SCH ×2 (09:59→21:36)
[2020-03-05] MEDS: INSULIN GLARGINE 100 UNIT/ML SUBCUT SCH ×2 (09:59→21:38)
[2020-03-05] MEDS ORDERED: RIFAMPIN 300 MG CAPSULE PO SCH (12:00)
[2020-03-05] MEDS ORDERED: VANCOMYCIN INJ 750 MG in SODIUM CHLORIDE 0.9% 250 ML IV PRN (12:03)
[2020-03-05] MEDS: PANTOPRAZOLE 40 MG VIAL IV SCH (12:23)
[2020-03-05] MEDS: RIFAMPIN INJ 600 MG in SODIUM CHLORIDE 0.9% 100 ML IV SCH (14:29)
[2020-03-05] MEDS ORDERED: VANCOMYCIN INJ 1,500 MG in SODIUM CHLORIDE 0.9% 500 ML IV ONE (17:00)
[2020-03-05 17:37] LABS: ABG HCO3 22.6 MMOL/L (20-26); ABG Oxygen Saturation 98.2 % (95-100); ABG PCO2 37.1 MM HG (35-48); ABG PH 7.402 (7.35-7.45); ABG PO2 141.8 MM HG (80-95); ABG TCO2 23.7 MMOL/L (23-27)
[2020-03-05] MEDS: ESCITALOPRAM 10 MG TABLET PO SCH (21:36)
[2020-03-05] MEDS: DEXMEDETOMIDINE 400 MCG in SODIUM CHLORIDE 0.9% 96 ML IV PRN (22:39)
[2020-03-06] MEDS: INSULIN LISPRO 100 UNIT/ML SUBCUT SCH ×6 (00:13→21:04)
[2020-03-06] MEDS: ALBUTEROL/IPRATROPIUM 3 ML NEB RESP TX SCH ×6 (03:02→23:36)
[2020-03-06 03:27] LABS: ABG Base Excess -4.7 MMOL/L (-2.5-2.5); ABG HCO3 20.5 MMOL/L (20-26); ABG Oxygen Saturation 99.2 % (95-100); ABG PCO2 39.3 MM HG (35-48); ABG PH 7.331 (7.35-7.45); ABG TCO2 19.8 MMOL/L (23-27)
[2020-03-06 04:25] LABS: Basophils % 0.1 % (0.0-0.8); Hematocrit 21.8 VOL% (42.0-52.0); Hemoglobin 6.5 GM/DL (14.0-18.0); Immature Granulocytes % 1.6 %; Immature Granulocytes Absolute 0.45 #; Lymphocytes # 0.9 10*3/uL (1.4-4.0); Lymphocytes % 3.2 % (21.2-54.2); Mean Corpuscular HGB Conc 29.8 GM/DL (32-36); Mean Corpuscular Volume 107.4 FL (87-102); Mean Platelet Volume 10.1 FL (9.6-12.0); Monocytes % 3.9 % (1.7-12.7); Neutrophils % 91.2 % (38.7-73.9); Platelet Count 134 T/CUMM (130-400); Red Blood Count 2.03 MC/CUMM (3.8-5.5); Red Cell Distribution Width 18.8 % (9.3-17.3); White Blood Count 28.9 T/CUMM (4-12)
[2020-03-06 04:47] LABS: Calcium 6.1 MG/DL (8.5-10.1)
[2020-03-06 06:14] LABS: Anisocytosis 2+; Band Neutrophils 2 % (0-10); Lymphocytes 5 % (20-55); Macrocytosis 1+; Metamyelocytes 1 %; Platelet Estimate Adequate; Segmented Neutrophils 89 % (50-85); Total Cells Counted 100
[2020-03-06 06:15] LABS: Basophilic Stippling Slight; Polychromasia Slight
[2020-03-06] MEDS: INSULIN GLARGINE 100 UNIT/ML SUBCUT SCH ×2 (08:27→21:03)
[2020-03-06] MEDS ORDERED: predniSONE 10 MG TABLET PER TUBE SCH (09:00)
[2020-03-06] MEDS: FERROUS SULFATE 325 MG TABLET PO SCH ×2 (10:33→21:03)
[2020-03-06] MEDS: MENTHOL/ZINC OXIDE OINT 71 GM JAR TOP SCH ×2 (10:33→21:04)
[2020-03-06] MEDS: MULTIVITAMIN (CENTRUM) TABLET PO SCH (10:34)
[2020-03-06] MEDS: MIDODRINE 5 MG TABLET PO SCH ×3 (10:34→21:03)
[2020-03-06] MEDS: APIXABAN 2.5 MG TABLET PO SCH ×2 (10:34→21:06)
[2020-03-06 11:24] LABS: ABG Base Excess -5.4 MMOL/L (-2.5-2.5); ABG HCO3 20.4 MMOL/L (20-26); ABG Oxygen Saturation 98.4 % (95-100); ABG PCO2 41.4 MM HG (35-48); ABG TCO2 21.6 MMOL/L (23-27)
[2020-03-06] MEDS ORDERED: SODIUM CHLORIDE 0.9% 1,000 ML IV PRN (12:54)
[2020-03-06] MEDS: PANTOPRAZOLE 40 MG VIAL IV SCH (13:35)
[2020-03-06] MEDS: predniSONE 5 MG TABLET PER TUBE SCH (13:37)
[2020-03-06] MEDS: RIFAMPIN INJ 600 MG in SODIUM CHLORIDE 0.9% 100 ML IV SCH (14:21)
[2020-03-06] MEDS: ACETAMINOPHEN 325 MG TABLET PO PRN (17:02)
[2020-03-06] MEDS: ESCITALOPRAM 10 MG TABLET PO SCH (21:03)
[2020-03-06] MEDS: DEXMEDETOMIDINE 400 MCG in SODIUM CHLORIDE 0.9% 96 ML IV PRN (22:05)
[2020-03-07] MEDS: INSULIN LISPRO 100 UNIT/ML SUBCUT SCH ×6 (00:45→19:27)
[2020-03-07] MEDS: ALBUTEROL/IPRATROPIUM 3 ML NEB RESP TX SCH ×6 (02:32→23:12)
[2020-03-07 02:38] LABS: ABG Base Excess -5.9 MMOL/L (-2.5-2.5); ABG HCO3 19.5 MMOL/L (20-26); ABG PCO2 39.2 MM HG (35-48); ABG PH 7.313 (7.35-7.45); ABG TCO2 18.8 MMOL/L (23-27)
[2020-03-07 05:49] LABS: Basophils % 0.1 % (0.0-0.8); Eosinophils % 0.2 % (0.00-10.9); Hematocrit 25.7 VOL% (42.0-52.0); Hemoglobin 7.8 GM/DL (14.0-18.0); Immature Granulocytes Absolute 0.19 #; Lymphocytes # 1.2 10*3/uL (1.4-4.0); Lymphocytes % 6.1 % (21.2-54.2); Mean Corpuscular HGB Conc 30.4 GM/DL (32-36); Mean Corpuscular Volume 105.8 FL (87-102); Mean Platelet Volume 9.8 FL (9.6-12.0); Monocytes % 3.8 % (1.7-12.7); Neutrophils % 88.8 % (38.7-73.9); Platelet Count 156 T/CUMM (130-400); Red Blood Count 2.43 MC/CUMM (3.8-5.5); Red Cell Distribution Width 18.9 % (9.3-17.3); White Blood Count 19.2 T/CUMM (4-12)
[2020-03-07 06:04] LABS: Calcium 6.1 MG/DL (8.5-10.1)
[2020-03-07] MEDS: MENTHOL/ZINC OXIDE OINT 71 GM JAR TOP SCH ×2 (09:57→20:55)
[2020-03-07] MEDS: INSULIN GLARGINE 100 UNIT/ML SUBCUT SCH ×2 (09:57→20:53)
[2020-03-07] MEDS: FERROUS SULFATE 325 MG TABLET PO SCH ×2 (09:57→20:55)
[2020-03-07] MEDS: predniSONE 5 MG TABLET PER TUBE SCH (09:57)
[2020-03-07] MEDS: APIXABAN 2.5 MG TABLET PO SCH ×2 (09:57→20:55)
[2020-03-07] MEDS: MULTIVITAMIN (CENTRUM) TABLET PO SCH (09:57)
[2020-03-07] MEDS: MIDODRINE 5 MG TABLET PO SCH ×3 (09:57→20:54)
[2020-03-07] MEDS ORDERED: ALBUMIN 25% 25 GM in PREMIX 1 EACH IV PRN (11:00)
[2020-03-07] MEDS ORDERED: ALBUMIN 25% 25 GM in PREMIX 1 EACH IV ONE (11:00)
[2020-03-07] MEDS: PANTOPRAZOLE 40 MG VIAL IV SCH (14:22)
[2020-03-07] MEDS: RIFAMPIN INJ 600 MG in SODIUM CHLORIDE 0.9% 100 ML IV SCH (14:22)
[2020-03-07] MEDS: DEXMEDETOMIDINE 400 MCG in SODIUM CHLORIDE 0.9% 96 ML IV PRN (15:43)
[2020-03-07] MEDS ORDERED: VANCOMYCIN INJ 750 MG in SODIUM CHLORIDE 0.9% 250 ML IV ONE (17:00)
[2020-03-07] MEDS: ACETAMINOPHEN 325 MG TABLET PO PRN (20:53)
[2020-03-07] MEDS: ESCITALOPRAM 10 MG TABLET PO SCH (20:55)
[2020-03-08] MEDS: INSULIN LISPRO 100 UNIT/ML SUBCUT SCH ×5 (00:22→18:11)
[2020-03-08] MEDS: ALBUTEROL/IPRATROPIUM 3 ML NEB RESP TX SCH ×5 (03:11→19:44)
[2020-03-08] MEDS: DEXMEDETOMIDINE 400 MCG in SODIUM CHLORIDE 0.9% 96 ML IV PRN (03:29)
[2020-03-08 04:34] LABS: Allen Test Positive; Pt O2 Delivery Device Ventilator
[2020-03-08 04:37] LABS: ABG Base Excess 1.7 MMOL/L (-2.5-2.5); ABG HCO3 26.1 MMOL/L (20-26); ABG PCO2 39.9 MM HG (35-48); ABG PH 7.433 (7.35-7.45); ABG PO2 118.1 MM HG (80-95); ABG TCO2 27.3 MMOL/L (23-27)
[2020-03-08 05:57] LABS: Calcium 7.3 MG/DL (8.5-10.1); Osmolality,Calculated 294.1 MOS/KG (273-304)
[2020-03-08 07:01] LABS: Basophils % 0.1 % (0.0-0.8); Eosinophils # 0.1 10*3/uL (0.0-0.87); Eosinophils % 0.7 % (0.00-10.9); Hematocrit 21.6 VOL% (42.0-52.0); Hemoglobin 6.8 GM/DL (14.0-18.0); Immature Granulocytes % 0.8 %; Immature Granulocytes Absolute 0.09 #; Lymphocytes # 0.6 10*3/uL (1.4-4.0); Lymphocytes % 5.4 % (21.2-54.2); Mean Corpuscular HGB Conc 31.5 GM/DL (32-36); Mean Corpuscular Volume 102.4 FL (87-102); Mean Platelet Volume 9.7 FL (9.6-12.0); Monocytes % 4.1 % (1.7-12.7); Neutrophils % 88.9 % (38.7-73.9); Platelet Count 125 T/CUMM (130-400); Red Blood Count 2.11 MC/CUMM (3.8-5.5); Red Cell Distribution Width 18.6 % (9.3-17.3); White Blood Count 11.9 T/CUMM (4-12)
[2020-03-08] MEDS: MIDODRINE 5 MG TABLET PO SCH ×3 (09:25→21:15)
[2020-03-08] MEDS: MULTIVITAMIN (CENTRUM) TABLET PO SCH (09:26)
[2020-03-08] MEDS: APIXABAN 2.5 MG TABLET PO SCH ×2 (09:26→21:14)
[2020-03-08] MEDS: FERROUS SULFATE 325 MG TABLET PO SCH ×2 (09:26→21:14)
[2020-03-08] MEDS: predniSONE 5 MG TABLET PER TUBE SCH (09:26)
[2020-03-08] MEDS: INSULIN GLARGINE 100 UNIT/ML SUBCUT SCH ×2 (09:29→21:13)
[2020-03-08] MEDS: MENTHOL/ZINC OXIDE OINT 71 GM JAR TOP SCH ×2 (09:29→21:15)
[2020-03-08] MEDS: PANTOPRAZOLE 40 MG VIAL IV SCH (09:42)
[2020-03-08 10:12] LABS: ABG HCO3 25.4 MMOL/L (20-26); ABG PCO2 36.4 MM HG (35-48); ABG PH 7.444 (7.35-7.45); ABG TCO2 23.6 MMOL/L (23-27)
[2020-03-08] MEDS ORDERED: VECURONIUM 10 MG VIAL IV ONE (11:04)
[2020-03-08] MEDS ORDERED: ETOMIDATE 20 MG/10 ML VIAL IV ONE ×2 (11:05→11:06)
[2020-03-08] MEDS ORDERED: MIDAZOLAM 2 MG/2 ML VIAL ONE (11:22)
[2020-03-08] MEDS ORDERED: MIDAZOLAM 2 MG/2 ML VIAL IV ONE (11:24)
[2020-03-08] MEDS ORDERED: MIDAZOLAM 100 MG in SODIUM CHLORIDE 0.9% 80 ML IV PRN (11:53)
[2020-03-08] MEDS: BUDESONIDE 0.5 MG/2 ML NEB RESP TX SCH ×2 (12:13→19:44)
[2020-03-08] MEDS: MEROPENEM 500 MG in SODIUM CHLORIDE 0.9% 100 ML IV SCH (13:15)
[2020-03-08] MEDS ORDERED: ACETAMINOPHEN 325 MG/10.15 ML UDCUP ONE (13:27)
[2020-03-08] MEDS: RIFAMPIN INJ 600 MG in SODIUM CHLORIDE 0.9% 100 ML IV SCH (13:41)
[2020-03-08] MEDS: ACETAMINOPHEN 325 MG TABLET PO PRN ×2 (13:43→23:10)
[2020-03-08] MEDS: fentaNYL INJ 1,250 MCG in SODIUM CHLORIDE 0.9% 225 ML IV PRN (20:48)
[2020-03-08] MEDS: ESCITALOPRAM 10 MG TABLET PO SCH (21:15)
[2020-03-09] MEDS: INSULIN LISPRO 100 UNIT/ML SUBCUT SCH ×4 (00:32→17:57)
[2020-03-09 00:55] LABS: Calcium 7.6 MG/DL (8.5-10.1); Osmolality,Calculated 303.1 MOS/KG (273-304)
[2020-03-09] MEDS: ALBUTEROL/IPRATROPIUM 3 ML NEB RESP TX SCH ×7 (01:09→23:15)
[2020-03-09] MEDS: PHENYLEPHRINE DRIP 40 MG/250 ML PREMIX IV PRN (01:22)
[2020-03-09 01:34] LABS: Basophils % 0.1 % (0.0-0.8); Eosinophils # 0.1 10*3/uL (0.0-0.87); Eosinophils % 0.9 % (0.00-10.9); Hematocrit 21.4 VOL% (42.0-52.0); Hemoglobin 6.6 GM/DL (14.0-18.0); Immature Granulocytes % 0.8 %; Immature Granulocytes Absolute 0.09 #; Lymphocytes # 1.1 10*3/uL (1.4-4.0); Lymphocytes % 8.9 % (21.2-54.2); Mean Corpuscular HGB Conc 30.8 GM/DL (32-36); Mean Corpuscular Volume 106.5 FL (87-102); Mean Platelet Volume 9.6 FL (9.6-12.0); Monocytes % 6.1 % (1.7-12.7); Neutrophils % 83.2 % (38.7-73.9); Platelet Count 145 T/CUMM (130-400); Red Blood Count 2.01 MC/CUMM (3.8-5.5); Red Cell Distribution Width 19.2 % (9.3-17.3); White Blood Count 11.9 T/CUMM (4-12)
[2020-03-09 02:00] LABS: ABG Base Excess -1.3 MMOL/L (-2.5-2.5); ABG HCO3 23.3 MMOL/L (20-26); ABG Oxygen Saturation 99.6 % (95-100); ABG PCO2 52.4 MM HG (35-48); ABG PH 7.293 (7.35-7.45); ABG TCO2 24.3 MMOL/L (23-27); Allen Test Positive; Pt O2 Delivery Device Ventilator
[2020-03-09] MEDS: fentaNYL INJ 1,250 MCG in SODIUM CHLORIDE 0.9% 225 ML IV PRN ×3 (02:55→20:56)
[2020-03-09 04:33] LABS: ABG Base Excess -0.2 MMOL/L (-2.5-2.5); ABG HCO3 24.8 MMOL/L (20-26); ABG Oxygen Saturation 98.8 % (95-100); ABG PCO2 42.2 MM HG (35-48); ABG PH 7.387 (7.35-7.45); ABG PO2 237.5 MM HG (80-95); ABG TCO2 26.1 MMOL/L (23-27); Allen Test Positive; Pt O2 Delivery Device Ventilator
[2020-03-09] MEDS: BUDESONIDE 0.5 MG/2 ML NEB RESP TX SCH ×2 (07:30→19:42)
[2020-03-09] MEDS ORDERED: predniSONE 20 MG TABLET PER TUBE SCH (08:54)
[2020-03-09] MEDS: MULTIVITAMIN (CENTRUM) TABLET PO SCH (10:33)
[2020-03-09] MEDS: MIDODRINE 5 MG TABLET PO SCH ×3 (10:33→21:31)
[2020-03-09] MEDS: FERROUS SULFATE 325 MG TABLET PO SCH ×2 (10:33→21:32)
[2020-03-09] MEDS: APIXABAN 2.5 MG TABLET PO SCH ×2 (10:33→21:32)
[2020-03-09] MEDS: INSULIN GLARGINE 100 UNIT/ML SUBCUT SCH ×2 (10:34→21:31)
[2020-03-09] MEDS: PANTOPRAZOLE 40 MG VIAL IV SCH (10:34)
[2020-03-09] MEDS: MENTHOL/ZINC OXIDE OINT 71 GM JAR TOP SCH ×2 (11:20→21:30)
[2020-03-09] MEDS: MEROPENEM 500 MG in SODIUM CHLORIDE 0.9% 100 ML IV SCH (14:21)
[2020-03-09] MEDS: RIFAMPIN INJ 600 MG in SODIUM CHLORIDE 0.9% 100 ML IV SCH (14:22)
[2020-03-09] MEDS: ESCITALOPRAM 10 MG TABLET PO SCH (21:32)
[2020-03-10] MEDS: INSULIN LISPRO 100 UNIT/ML SUBCUT SCH ×4 (00:10→17:19)
[2020-03-10 03:37] LABS: ABG Base Excess -1.7 MMOL/L (-2.5-2.5); ABG HCO3 23.1 MMOL/L (20-26); ABG Oxygen Saturation 95.8 % (95-100); ABG PCO2 39.1 MM HG (35-48); ABG PO2 85.2 MM HG (80-95); ABG TCO2 24.3 MMOL/L (23-27)
[2020-03-10] MEDS: ALBUTEROL/IPRATROPIUM 3 ML NEB RESP TX SCH ×6 (03:55→23:03)
[2020-03-10 04:35] LABS: Basophils % 0.4 % (0.0-0.8); Eosinophils # 0.2 10*3/uL (0.0-0.87); Eosinophils % 1.6 % (0.00-10.9); Hematocrit 20.7 VOL% (42.0-52.0); Immature Granulocytes % 0.6 %; Immature Granulocytes Absolute 0.07 #; Lymphocytes # 0.9 10*3/uL (1.4-4.0); Lymphocytes % 8.6 % (21.2-54.2); Mean Corpuscular HGB Conc 30.9 GM/DL (32-36); Mean Corpuscular Volume 105.6 FL (87-102); Mean Platelet Volume 9.2 FL (9.6-12.0); Monocytes % 7.2 % (1.7-12.7); Neutrophils % 81.6 % (38.7-73.9); Platelet Count 171 T/CUMM (130-400); Red Blood Count 1.96 MC/CUMM (3.8-5.5); Red Cell Distribution Width 19.6 % (9.3-17.3); White Blood Count 10.9 T/CUMM (4-12)
[2020-03-10 04:39] LABS: Hemoglobin 6.4 GM/DL (14.0-18.0)
[2020-03-10 04:47] LABS: Calcium 8.3 MG/DL (8.5-10.1)
[2020-03-10] MEDS: fentaNYL INJ 1,250 MCG in SODIUM CHLORIDE 0.9% 225 ML IV PRN ×3 (05:12→23:43)
[2020-03-10] MEDS: BUDESONIDE 0.5 MG/2 ML NEB RESP TX SCH ×2 (07:28→20:31)
[2020-03-10] MEDS ORDERED: SODIUM CHLORIDE 0.9% 1,000 ML IV PRN (08:06)
[2020-03-10] MEDS ORDERED: MULTIVITAMIN LIQUID (CENTRUM) 60 ML BOTTLE PO SCH (09:00)
[2020-03-10] MEDS: predniSONE 5 MG TABLET PER TUBE SCH (09:07)
[2020-03-10] MEDS: APIXABAN 2.5 MG TABLET PO SCH ×2 (09:07→20:36)
[2020-03-10] MEDS: MIDODRINE 5 MG TABLET PO SCH ×3 (09:07→20:36)
[2020-03-10] MEDS: INSULIN GLARGINE 100 UNIT/ML SUBCUT SCH ×2 (09:07→20:36)
[2020-03-10] MEDS: MENTHOL/ZINC OXIDE OINT 71 GM JAR TOP SCH ×2 (09:07→21:20)
[2020-03-10] MEDS: PANTOPRAZOLE 40 MG VIAL IV SCH (09:07)
[2020-03-10] MEDS: FERROUS SULFATE 300 MG/5 ML UDCUP PO SCH ×2 (09:20→20:35)
[2020-03-10] MEDS: MULTIVITAMIN LIQUID (CENTRUM) 60 ML BOTTLE PO SCH (09:20)
[2020-03-10] MEDS: RIFAMPIN INJ 600 MG in SODIUM CHLORIDE 0.9% 100 ML IV SCH (12:53)
[2020-03-10] MEDS: MEROPENEM 500 MG in SODIUM CHLORIDE 0.9% 100 ML IV SCH (12:53)
[2020-03-10] MEDS ORDERED: VANCOMYCIN INJ 750 MG in SODIUM CHLORIDE 0.9% 250 ML IV ONE (17:00)
[2020-03-10] MEDS: ESCITALOPRAM 10 MG TABLET PO SCH (20:36)
[2020-03-11] MEDS: ACETAMINOPHEN 325 MG TABLET PO PRN (00:40)
[2020-03-11] MEDS: INSULIN LISPRO 100 UNIT/ML SUBCUT SCH ×4 (02:22→17:57)
[2020-03-11] MEDS: ALBUTEROL/IPRATROPIUM 3 ML NEB RESP TX SCH ×5 (03:39→19:36)
[2020-03-11 04:11] LABS: ABG Base Excess -3.8 MMOL/L (-2.5-2.5); ABG HCO3 21.1 MMOL/L (20-26); ABG Oxygen Saturation 91.6 % (95-100); ABG PCO2 41.3 MM HG (35-48); ABG PH 7.332 (7.35-7.45); ABG PO2 65.4 MM HG (80-95); ABG TCO2 19.7 MMOL/L (23-27)
[2020-03-11 04:48] LABS: Basophils % 0.2 % (0.0-0.8); Eosinophils # 0.2 10*3/uL (0.0-0.87); Eosinophils % 1.4 % (0.00-10.9); Hematocrit 27.2 VOL% (42.0-52.0); Immature Granulocytes % 0.5 %; Immature Granulocytes Absolute 0.06 #; Lymphocytes # 1.1 10*3/uL (1.4-4.0); Mean Corpuscular HGB Conc 31.6 GM/DL (32-36); Mean Corpuscular Volume 99.6 FL (87-102); Monocytes % 7.6 % (1.7-12.7); Neutrophils % 81.3 % (38.7-73.9); Platelet Count 194 T/CUMM (130-400); Red Cell Distribution Width 18.6 % (9.3-17.3); White Blood Count 11.7 T/CUMM (4-12)
[2020-03-11 05:04] LABS: Calcium 8.6 MG/DL (8.5-10.1); Osmolality,Calculated 312.8 MOS/KG (273-304)
[2020-03-11 05:09] LABS: Hemoglobin 8.6 GM/DL (14.0-18.0); Red Blood Count 2.73 MC/CUMM (3.8-5.5)
[2020-03-11] MEDS: fentaNYL INJ 1,250 MCG in SODIUM CHLORIDE 0.9% 225 ML IV PRN ×3 (05:33→19:23)
[2020-03-11] MEDS: BUDESONIDE 0.5 MG/2 ML NEB RESP TX SCH ×2 (07:20→19:36)
[2020-03-11] MEDS: MIDODRINE 5 MG TABLET PO SCH ×3 (09:54→20:41)
[2020-03-11] MEDS: PANTOPRAZOLE 40 MG VIAL IV SCH (09:54)
[2020-03-11] MEDS: MULTIVITAMIN LIQUID (CENTRUM) 60 ML BOTTLE PO SCH (09:54)
[2020-03-11] MEDS: APIXABAN 2.5 MG TABLET PO SCH ×2 (09:54→20:41)
[2020-03-11] MEDS: FERROUS SULFATE 300 MG/5 ML UDCUP PO SCH ×2 (09:54→20:41)
[2020-03-11] MEDS: predniSONE 5 MG TABLET PER TUBE SCH (09:54)
[2020-03-11] MEDS: MENTHOL/ZINC OXIDE OINT 71 GM JAR TOP SCH ×2 (09:54→20:41)
[2020-03-11] MEDS: INSULIN GLARGINE 100 UNIT/ML SUBCUT SCH ×2 (09:56→20:50)
[2020-03-11] MEDS: POTASSIUM CHLORIDE RIDER 10 MEQ in PREMIX 1 EACH IV PRN (10:40)
[2020-03-11] MEDS: MEROPENEM 500 MG in SODIUM CHLORIDE 0.9% 100 ML IV SCH (13:09)
[2020-03-11] MEDS: RIFAMPIN INJ 600 MG in SODIUM CHLORIDE 0.9% 100 ML IV SCH (14:23)
[2020-03-11] MEDS: ESCITALOPRAM 10 MG TABLET PO SCH (20:41)
[2020-03-12] MEDS: ALBUTEROL/IPRATROPIUM 3 ML NEB RESP TX SCH ×7 (00:08→23:43)
[2020-03-12] MEDS: INSULIN LISPRO 100 UNIT/ML SUBCUT SCH ×5 (00:10→23:12)
[2020-03-12 03:13] LABS: ABG Base Excess 1.5 MMOL/L (-2.5-2.5); ABG HCO3 25.8 MMOL/L (20-26); ABG Oxygen Saturation 98.8 % (95-100); ABG PCO2 37.2 MM HG (35-48); ABG PH 7.444 (7.35-7.45); ABG TCO2 23.5 MMOL/L (23-27)
[2020-03-12] MEDS: fentaNYL INJ 1,250 MCG in SODIUM CHLORIDE 0.9% 225 ML IV PRN ×3 (03:36→22:03)
[2020-03-12 04:46] LABS: Basophils % 0.1 % (0.0-0.8); Eosinophils # 0.2 10*3/uL (0.0-0.87); Eosinophils % 1.3 % (0.00-10.9); Hematocrit 28.1 VOL% (42.0-52.0); Hemoglobin 8.9 GM/DL (14.0-18.0); Immature Granulocytes % 0.8 %; Immature Granulocytes Absolute 0.11 #; Lymphocytes % 7.5 % (21.2-54.2); Mean Corpuscular HGB Conc 31.7 GM/DL (32-36); Mean Platelet Volume 8.7 FL (9.6-12.0); Monocytes % 9.1 % (1.7-12.7); Neutrophils % 81.2 % (38.7-73.9); Platelet Count 248 T/CUMM (130-400); Red Blood Count 2.81 MC/CUMM (3.8-5.5); Red Cell Distribution Width 18.3 % (9.3-17.3); White Blood Count 13.7 T/CUMM (4-12)
[2020-03-12 05:06] LABS: Calcium 9.1 MG/DL (8.5-10.1); Osmolality,Calculated 290.7 MOS/KG (273-304)
[2020-03-12] MEDS: DEXTROSE 50% 25 GM/50 ML VIAL IV PRN ×2 (05:17→12:06)
[2020-03-12] MEDS: BUDESONIDE 0.5 MG/2 ML NEB RESP TX SCH ×2 (07:24→19:52)
[2020-03-12] MEDS: FERROUS SULFATE 300 MG/5 ML UDCUP PO SCH ×2 (08:56→20:30)
[2020-03-12] MEDS: APIXABAN 2.5 MG TABLET PO SCH ×2 (08:56→20:30)
[2020-03-12] MEDS: INSULIN GLARGINE 100 UNIT/ML SUBCUT SCH ×2 (08:56→20:39)
[2020-03-12] MEDS: predniSONE 5 MG TABLET PER TUBE SCH (08:56)
[2020-03-12] MEDS: MIDODRINE 5 MG TABLET PO SCH ×3 (08:56→20:30)
[2020-03-12] MEDS: MULTIVITAMIN LIQUID (CENTRUM) 60 ML BOTTLE PO SCH (08:57)
[2020-03-12] MEDS: PANTOPRAZOLE 40 MG VIAL IV SCH (08:57)
[2020-03-12] MEDS: MENTHOL/ZINC OXIDE OINT 71 GM JAR TOP SCH ×2 (08:58→20:31)
[2020-03-12] MEDS ORDERED: MIDAZOLAM 2 MG/2 ML VIAL IV ONE (10:15)
[2020-03-12] MEDS ORDERED: MIDAZOLAM 2 MG/2 ML VIAL ONE (10:16)
[2020-03-12 10:54] VITALS: BP 190/89
[2020-03-12] MEDS: MEROPENEM 500 MG in SODIUM CHLORIDE 0.9% 100 ML IV SCH (13:03)
[2020-03-12] MEDS: FLUCONAZOLE 40 MG/ML 35 ML/BOTTLE PO SCH (13:54)
[2020-03-12] MEDS ORDERED: VANCOMYCIN INJ 750 MG in SODIUM CHLORIDE 0.9% 250 ML IV ONE (15:00)
[2020-03-12] MEDS: ESCITALOPRAM 10 MG TABLET PO SCH (20:30)
[2020-03-13] MEDS: ALBUTEROL/IPRATROPIUM 3 ML NEB RESP TX SCH ×4 (04:55→15:37)
[2020-03-13 05:00] LABS: ABG Base Excess -0.8 MMOL/L (-2.5-2.5); ABG HCO3 23.6 MMOL/L (20-26); ABG Oxygen Saturation 95.8 % (95-100); ABG PCO2 37.7 MM HG (35-48); ABG PH 7.414 (7.35-7.45); ABG PO2 82.1 MM HG (80-95); ABG TCO2 24.7 MMOL/L (23-27); Allen Test Positive; Pt O2 Delivery Device Ventilator
[2020-03-13] MEDS: INSULIN LISPRO 100 UNIT/ML SUBCUT SCH ×3 (06:03→17:39)
[2020-03-13] MEDS: BUDESONIDE 0.5 MG/2 ML NEB RESP TX SCH (07:34)
[2020-03-13] MEDS: MENTHOL/ZINC OXIDE OINT 71 GM JAR TOP SCH (08:18)
[2020-03-13] MEDS: PANTOPRAZOLE 40 MG VIAL IV SCH (08:18)
[2020-03-13] MEDS: FLUCONAZOLE 40 MG/ML 35 ML/BOTTLE PO SCH (08:19)
[2020-03-13] MEDS: MULTIVITAMIN LIQUID (CENTRUM) 60 ML BOTTLE PO SCH (08:19)
[2020-03-13] MEDS: INSULIN GLARGINE 100 UNIT/ML SUBCUT SCH (08:19)
[2020-03-13] MEDS: APIXABAN 2.5 MG TABLET PO SCH (08:20)
[2020-03-13] MEDS: FERROUS SULFATE 300 MG/5 ML UDCUP PO SCH (08:20)
[2020-03-13] MEDS: predniSONE 5 MG TABLET PER TUBE SCH (08:20)
[2020-03-13] MEDS: MIDODRINE 5 MG TABLET PO SCH ×2 (08:20→15:26)
[2020-03-13] MEDS: fentaNYL INJ 1,250 MCG in SODIUM CHLORIDE 0.9% 225 ML IV PRN ×2 (08:23→17:01)
[2020-03-13] MEDS: ACETAMINOPHEN 325 MG TABLET PO PRN (09:33)
[2020-03-13] MEDS ORDERED: METOPROLOL TARTRATE 25 MG TABLET NG SCH (11:00)
[2020-03-13] MEDS ORDERED: MICAFUNGIN 100 MG in SODIUM CHLORIDE 0.9% 100 ML IV SCH (12:00)
[2020-03-13] MEDS: MEROPENEM 500 MG in SODIUM CHLORIDE 0.9% 100 ML IV SCH (13:58)
[2020-03-13] MEDS ORDERED: HEPARIN 10,000 UNIT/10 ML VIAL IV PRN (14:09)
[2020-03-13] MEDS ORDERED: VANCOMYCIN INJ 750 MG in SODIUM CHLORIDE 0.9% 250 ML IV ONE (21:00)
== END 2020-03-13 18:51 | DRG 981 ==
LOC: N.5E → SUATTDRO 22:14 → N.ICU 03-02 12:21
PROVIDERS: ADMIT Internal Medicine; ATTEND Family Medicine